=== PATIENT | female | born 1980 | race Caucasian/White ===

== ENCOUNTER 2019-12-31 10:00 | Outpatient (RCR) | payer OTHER, SELFPAY | END 2020-01-23 10:28 | disposition home or self-care (01) | LOC: PT.CARL 10:00 | PROVIDERS: Visit Provider Orthopaedic Surgery | DX: M17.12 Unilateral primary osteoarthritis, left knee (principal) | CPT/HCPCS: 97014; 97110; 97163; G0283 ==

== ENCOUNTER 2021-05-23 05:43 | Emergency (ER) | payer OTHER, SELFPAY ==
[2021-05-23 05:44] VITALS: BP 170/104; PULSE 95; RESP 18; TEMP 36.8; O2SAT 99; BMI 38.7
--- NOTE | 2021-05-23 05:56 | CT_ITS ---
PROCEDURE INFORMATION: Exam: CT Abdomen And Pelvis Without Contrast Exam date and time: 05/23/2021 5:56 AM Age: 40 years old Clinical indication: Abdominal pain; Prior surgery; Patient HX: Left flank pain x 3 hours TECHNIQUE: Imaging protocol: Computed tomography of the abdomen and pelvis without contrast. Radiation optimization: All CT scans at this facility use at least one of these dose optimization techniques: automated exposure control; mA and/or kV adjustment per patient size (includes targeted exams where dose is matched to clinical indication); or iterative reconstruction. [facility] w con 03/04/2019 2:31 AM FINDINGS: Liver: Normal. No mass. Gallbladder and bile ducts: Normal. No calcified stones. No ductal dilation. Pancreas: Normal. No ductal dilation. Spleen: Normal. No splenomegaly. Adrenal glands: Normal. No mass. Kidneys and ureters: No hydronephrosis, hydroureter, nephrolithiasis, or urolithiasis is present. Stomach and bowel: Unremarkable. No obstruction. No mucosal thickening. Appendix: No evidence of appendicitis. Intraperitoneal space: Unremarkable. No free air. No significant fluid collection. Vasculature: Unremarkable. No abdominal aortic aneurysm. Lymph nodes: Unremarkable. No enlarged lymph nodes. Urinary bladder: Unremarkable as visualized. Reproductive: The patient is status post hysterectomy. Bones/joints: Unremarkable. No acute fracture. Soft tissues: Unremarkable. IMPRESSION: No acute process to explain the patient's left
[2021-05-23 06:09] LABS: Microscopic, Urine URINE MICROSCOPIC (MICROSCOPIC)
[2021-05-23 06:16] LABS: Appearance,Urine SL CLOUDY (Clear); Bilirubin,Urine Negative (Negative); Blood, Urine 3+ (Negative); Color,Urine YELLOW (Yellow); Glucose,Urine (UA) Negative (Negative); Ketones,Urine Negative (Negative); Leukocyte Esterase,Urine Negative (Negative); Nitrate,Urine Negative (Negative); PH,Urine 5.5 (5.0-8.5); Protein,Urine 1+ (Negative); Specific Gravity, Urine >= 1.030 (1.005-1.030); Urobilinogen,Urine 0.2 EU/dl (0.2)
[2021-05-23 06:18] LABS: Basophils # 0.1 K/mm3 (0-0.2); Basophils % 1.2 % (0.1-2.0); Eosinophils # 0.4 K/mm3 (0.0-0.4); Eosinophils % 4.3 % (0.1-12.0); Hematocrit 44.1 % (37.0-47.0); Hemoglobin 15.5 g/dL (12.2-16.2); Lymphocytes # 2.7 K/mm3 (0.7-4.5); Mean Corpuscular Hemoglobin 31.7 pg (27.0-31.2); Mean Corpuscular Volume 90.6 fl (81-99); Mean Platelet Volume 8.3 fl (7.4-10.4); Monocytes # 0.5 K/mm3 (0.1-1.0); Monocytes % 5.4 % (1.7-9.3); Neutrophils # 5.3 K/mm3 (1.8-7.8); Neutrophils % 59.1 % (37.0-80.0); Platelet Count 276 K/mm3 (142-424); Red Blood Count 4.87 M/mm3 (4.20-5.40); Red Cell Distribution Width 14.2 % (11.5-17.5)
[2021-05-23 06:27] LABS: Alanine Aminotransferase 29 U/L (12-78); Albumin Level 4.5 g/dl (3.5-5.0); Albumin/Globulin Ratio 1.3 (1.1-1.8); Alkaline Phosphatase 109 U/L (38-126); Anion Gap 13.9 mEq/L (5-15); Aspartate Amino Transferase 31 U/L (14-36); Bilirubin,Total 1.3 mg/dl (0.2-1.3); Blood Urea Nitrogen 14 mg/dl (7-17); Calcium 9.1 mg/dl (8.4-10.2); Carbon Dioxide 23 mmol/L (22.0-30.0); Chloride 105 mmol/L (98-107); Creatinine Clearance Estimated 162 mL/min (50-200); Estimated Glomerular Filt Rate 80 ml/min (>60); GFR (African American) 97 ML/MIN (>60); Globulin 3.4 g/dL (1.3-3.2); Glucose 164 mg/dl (74-100); Potassium 3.9 mmoL/L (3.5-5.1); Sodium 138 mmol/L (136-145); Total Protein,Serum 7.9 g/dl (6.3-8.2)
[2021-05-23 06:28] LABS: HCG Qualitative, Serum Negative (Negative)
[2021-05-23 06:31] LABS: WBC,Urine Occasional #/hpf (0-3)
[2021-05-23 06:32] LABS: Bacteria,Urine Trace /lpf; Squamous Epithelial Cell,Urine Occasional #/hpf (0-5)
--- NOTE | 2021-05-23 06:57 | HMH.EDGENADL ---
ED Disposition Clinical Impression: UTI (urinary tract infection) Qualifiers: Urinary tract infection type: acute cystitis Hematuria presence: with hematuria Qualified Code(s): N30.01 - Acute cystitis with hematuria Disposition: Home, Self-Care Condition on Discharge: Good Instructions: DI for Acute Abdominal Pain Additional Instructions: Take cefdinir as prescribed. A prescription for this was sent to [facility] in [place]. Take Zofran as needed for nausea and vomiting. Take Tylenol and ibuprofen at home for pain. Follow-up with your primary care doctor on Tuesday. Return to the emergency department for any new or worsening symptoms. Prescriptions: Cefdinir [Omnicef 300mg Capsule] 300 mg PO BID #20 cap Transmission Status: Pending to [id number] Ondansetron [Zofran 4mg ODT] 4 mg PO TIDP PRN 3 Days #12 tab PRN Reason: Nausea And Vomiting Transmission Status: Pending to [id number] Referrals: Laila Zeng [Primary Care Provider] - - Critical Care Critical Care Time: No Attestation: On 05/23/21, the high probability of a clinically significant, sudden or life threatening deterioration of the following system(s) required my full and direct attention, intervention and personal management. The time I documented below is in addition to time spent performing reported procedures but includes the following listed in this critical care notation. Medical Decision Making - Patrice Inquiry Pt receiving controlled substance: No Vital Signs: 05/23/21 05:44 Temperature 98.2 F Temperature Source Oral Pulse Rate [Right] 95 H Respiratory Rate 18 Blood Pressure [Right Arm] 170/104 H Blood Pressure Mean [Right Arm] 126 02 Sat by Pulse Oximetry 99 - Lab Data Lab Results 05/23/21 05:46: Urine Color Yellow, Urine Appearance Sl cloudy, Urine pH 5.5, Ur Specific [place] >= 1.030, Urine Protein 1+, Urine Glucose (UA) Negative, Urine Ketones Negative, Urine Blood 3+, Urine Nitrate Negative, Urine Bilirubin Negative, Urine Urobilinogen 0.2, Ur Leukocyte Esterase Negative, Urine RBC 10-20, Urine WBC Occasional, Ur Squamous Epith Cells Occasional, Urine Bacteria Trace 05/23/21 06:05: WBC 9.0, RBC 4.87, Hgb 15.5, Hct 44.1, MCV 90.6, MCH 31.7 H, MCHC 35.0, RDW 14.2, Plt Count 276, MPV 8.3, Neut % (Auto) 59.1, Lymph % (Auto) 30.0, Long % (Auto) 5.4, Eos % (Auto) 4.3, Baso % (Auto) 1.2, Neut # (Auto) 5.3, Lymph # (Auto) 2.7, Long # (Auto) 0.5, Eos # (Auto) 0.4, Baso # (Auto) 0.1 05/23/21 06:05: Sodium 138, Potassium 3.9, Chloride 105, Carbon Dioxide 23, Anion Gap 13.9, BUN 14, Creatinine 0.80, Estimated Creat Clear 162, Estimated GFR 80, Est GFR ( Amer) 97, Glucose 164 H, Calcium 9.1, Total Bilirubin 1.3, AST 31, ALT 29, Alkaline Phosphatase 109, Total Protein 7.9, Albumin 4.5, Globulin 3.4 H, Albumin/Globulin Ratio 1.3 05/23/21 06:05: Serum HCG, Qual Negative Result diagrams: 05/23/21 06:05 05/23/21 06:05 Orders (Tests/Meds): ED MEDICATIONS Generic Name Dose Route Start Last Admin Trade Name Freq PRN Reason Stop Dose Admin Lactated Ringer's 1,000 mls @ 999 mls/hr 05/23/21 06:15 05/23/21 06:12 Lactated Ringer's 1000 Ml Bag IV 05/23/21 07:15 999 mls/hr .[id number] JERMAINE Administration Discontinued Medications Generic Name Dose Route Start Last Admin Trade Name Freq PRN Reason Stop Dose Admin Ketorolac Tromethamine 30 mg 05/23/21 05:59 05/23/21 06:13 Ketorolac 30mg/Ml Vial IV 05/23/21 06:00 30 mg ONCE ONE Administration Ondansetron HCl 4 mg 05/23/21 05:56 05/23/21 06:13 Ondansetron 4mg Odt SL 05/23/21 05:57 Not Given ONCE ONE Ondansetron HCl 4 mg 05/23/21 06:13 05/23/21 06:13 Ondansetron 4mg/2ml Vial IV 05/23/21 06:14 4 mg ONCE ONE Administration Medical Decision Narrative: The patient is a 40-year-old female who presents to the emergency department with left flank pain radiating to the left groin associated with vomiting since 4 AM. Differenti
[2021-05-23 08:20] VITALS: BP 147/90; PULSE 88; RESP 16; TEMP 36.6; O2SAT 98
== END 2021-05-23 08:22 | disposition home or self-care (01) ==
PROVIDERS: Emergency Provider Emergency Medicine; PCP Family Medicine
DX: N30.01 Acute cystitis with hematuria (principal); I10 Essential (primary) hypertension
CPT/HCPCS: 74176; 80053; 81001; 84703; 85025; 96365; 96375; 99283; J2405

== ENCOUNTER → 2021-07-31 16:39 | Outpatient (CLI) | payer OTHER, SELFPAY ==
--- NOTE | 2021-07-31 16:40 | MM_ITS ---
PROCEDURE: MM DIG SCREENING MAMM BI W/CAD Digital Breast Tomosynthesis Included CLINICAL INDICATION: SCREENING There is a history of breast cancer in the patient's maternal grandmother and maternal aunt. COMPARISON: [facility] BC SCREENING MAMMOGRAM DIGITAL from 08/05/2009 MG BC SCREENING MAMMOGRAM DIGITAL from 08/05/2009 TECHNIQUE: Standard CC and MLO images and 3D Tomosynthesis was obtained. R2 CAD reviewed. FINDINGS: The breasts are composed primarily of with there is a tiny benign-appearing nodular density inner quadrant right breast. There is no suspicious lesion in either breast and no suspicious microcalcifications IMPRESSION: Fatty type breast parenchyma with no suspicious lesions seen BI-RAD Category: 1 Negative FOLLOW-UP: 1YR 1 Year Follow-up (A letter has been sent to the patient regarding results of the study.) Dictated by: Dr. Andres Padilla MD 08/28/2021 07:54 Dr. Andres Padilla MD in [place] 08/28/2021 07:54
== END ==
PROVIDERS: PCP Family Medicine; Visit Provider Family Medicine
DX: Z12.31 Encounter for screening mammogram for malignant neoplasm of breast (principal); Z80.3 Family history of malignant neoplasm of breast
CPT/HCPCS: 77063; 77067

== ENCOUNTER → 2021-08-21 14:34 | Outpatient (CLI) | payer OTHER, SELFPAY | PROVIDERS: PCP Family Medicine; Visit Provider Nurse Practitioner Family | DX: G47.9 Sleep disorder, unspecified (principal); R06.83 Snoring; G43.109 Migraine with aura, not intractable, without status migrainosus; I10 Essential (primary) hypertension; Z68.39 Body mass index [BMI] 39.0-39.9, adult; H53.139 Sudden visual loss, unspecified eye | CPT/HCPCS: G0399 ==

== ENCOUNTER → 2021-08-22 09:13 | Outpatient (CLI) | payer OTHER, SELFPAY ==
--- NOTE | 2021-08-22 09:13 | MR_ITS ---
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 Contrast material: ISOVUE; Contrast volume: 22 ml; Contrast route: IV; COMPARISON: No relevant prior studies available. FINDINGS: Brain: No acute infarct identified on the diffusion-weighted imaging. No evidence of brain parenchymal edema or intracranial mass effect. No significant white matter disease. No enhancing intracranial pathology. Cerebral ventricles: Normal. No ventriculomegaly. Bones/joints: Unremarkable. Paranasal sinuses: Moderate frontal and ethmoid sinus mucosal thickening. Retention cysts or polyps in the left maxillary and right sphenoid sinuses. Mastoid air cells: Normal as visualized. No mastoid effusion. Orbital cavity: Unremarkable. Soft tissues: Unremarkable. IMPRESSION: Unremarkable MRI brain without and with contrast.
--- NOTE | 2021-08-22 09:13 | MR_ITS ---
PROCEDURE INFORMATION: Exam: MRA Head Without Contrast; Arteriography Exam date and time: 08/22/2021 9:13 AM Age: 40 years old Clinical indication: Pain; Headache; Additional info: Sudden loss of vision, transient TECHNIQUE: Imaging protocol: Magnetic resonance angiography head without contrast. Exam focused on the arteries. COMPARISON: No relevant prior studies available. FINDINGS: ANTERIOR CIRCULATION: Right internal carotid artery: 2 mm saccular aneurysm arising from the inferior surface of the right supraclinoid ICA. Right ICA is patent without stenosis. Right middle cerebral artery: No occlusion or significant stenosis. No aneurysm. Right anterior cerebral artery: No occlusion or significant stenosis. No aneurysm. Left internal carotid artery: Intracranial segment is patent with no significant stenosis. No aneurysm. Left middle cerebral artery: No occlusion or significant stenosis. No aneurysm. Left anterior cerebral artery: No occlusion or significant stenosis. No aneurysm. POSTERIOR CIRCULATION: Right vertebral artery: No occlusion or significant stenosis. No aneurysm. Left vertebral artery: No occlusion or significant stenosis. No aneurysm. Basilar artery: No occlusion or significant stenosis. No aneurysm. Right posterior cerebral artery: No occlusion or significant stenosis. No aneurysm. Left posterior cerebral artery: No occlusion or significant stenosis. No aneurysm. IMPRESSION: 1. 2 mm right supraclinoid ICA aneurysm. 2. No significant stenosis or large vessel occlusion.
== END ==
PROVIDERS: PCP Family Medicine; Visit Provider Nurse Practitioner Family
DX: G43.109 Migraine with aura, not intractable, without status migrainosus (principal); H53.139 Sudden visual loss, unspecified eye; I10 Essential (primary) hypertension
CPT/HCPCS: 70544; 70553; A9576

== ENCOUNTER 2021-11-14 10:35 | Emergency (ER) | payer OTHER, SELFPAY ==
--- NOTE | 2021-11-14 10:54 | CT_ITS ---
PROCEDURE INFORMATION: Exam: CT Abdomen And Pelvis Without Contrast Exam date and time: 11/14/2021 10:54 AM Age: 41 years old Clinical indication: Abdominal pain; Flank; Right; Additional info: Kidney stone. . RT side kidney pain. . . HX of kidney stones TECHNIQUE: Imaging protocol: Computed tomography of the abdomen and pelvis without contrast. Radiation optimization: All CT scans at this facility use at least one of these dose optimization techniques: automated exposure control; mA and/or kV adjustment per patient size (includes targeted exams where dose is matched to clinical indication); or iterative reconstruction. COMPARISON: CT ABDOMEN PELVIS WO CON 05/23/2021 6:37 AM FINDINGS: Liver: Hepatic steatosis. Gallbladder and bile ducts: Normal. No calcified stones. No ductal dilation. Pancreas: Normal. No ductal dilation. Spleen: Normal. No splenomegaly. Adrenal glands: Normal. No mass. Kidneys and ureters: Mild right hydroureteronephrosis. No obstructing stone is seen. There is some stranding about the right renal pelvis. Stomach and bowel: Colonic diverticulosis without evidence of diverticulitis. No bowel obstruction. Appendix: No evidence of appendicitis. Intraperitoneal space: Unremarkable. No free air. No significant fluid collection. Vasculature: Unremarkable. No abdominal aortic aneurysm. Lymph nodes: Unremarkable. No enlarged lymph nodes. Urinary bladder: Unremarkable as visualized. Reproductive: Hysterectomy. Bones/joints: Unremarkable. No acute fracture. Soft tissues: Unremarkable. IMPRESSION: Mild right hydroureteronephrosis. No obstructing stone is seen. Findings may reflect a recently passed stone.
[2021-11-14 11:03] LABS: Microscopic, Urine URINE MICROSCOPIC (MICROSCOPIC)
[2021-11-14 11:06] VITALS: BP 125/74; PULSE 78; RESP 22; TEMP 37.1; O2SAT 98; BMI 30.9
[2021-11-14 11:06] LABS: Appearance,Urine CLEAR (Clear); Blood, Urine 3+ (Negative); Color,Urine YELLOW (Yellow); Glucose,Urine (UA) Negative (Negative); Ketones,Urine Negative (Negative); Leukocyte Esterase,Urine Negative (Negative); Nitrate,Urine Negative (Negative); Protein,Urine TRACE (Negative); Urobilinogen,Urine 0.2 EU/dl (0.2)
[2021-11-14 11:08] LABS: Basophils # 0.2 K/mm3 (0-0.2); Basophils % 1.7 % (0.1-2.0); Eosinophils # 0.2 K/mm3 (0.0-0.4); Eosinophils % 2.4 % (0.1-12.0); Hematocrit 47.4 % (37.0-47.0); Hemoglobin 15.7 g/dL (12.2-16.2); Lymphocytes # 2.9 K/mm3 (0.7-4.5); Lymphocytes % 27.9 % (10-50); Mean Corpuscular HGB Conc 33.2 g/dL (31.8-35.4); Mean Corpuscular Hemoglobin 31.8 pg (27.0-31.2); Mean Corpuscular Volume 95.9 fl (81-99); Mean Platelet Volume 8.5 fl (7.4-10.4); Monocytes # 0.4 K/mm3 (0.1-1.0); Monocytes % 4.2 % (1.7-9.3); Neutrophils # 6.5 K/mm3 (1.8-7.8); Neutrophils % 63.9 % (37.0-80.0); Platelet Count 325 K/mm3 (142-424); Red Blood Count 4.95 M/mm3 (4.20-5.40); Red Cell Distribution Width 13.9 % (11.5-17.5); White Blood Count 10.2 K/mm3 (4.8-10.8)
[2021-11-14 11:23] LABS: Alanine Aminotransferase 33 U/L (12-78); Albumin Level 4.5 g/dl (3.5-5.0); Albumin/Globulin Ratio 1.3 (1.1-1.8); Alkaline Phosphatase 108 U/L (38-126); Anion Gap 13.1 mEq/L (5-15); Aspartate Amino Transferase 34 U/L (14-36); Bilirubin,Total 1.2 mg/dl (0.2-1.3); Blood Urea Nitrogen 12 mg/dl (7-17); Calcium 9.7 mg/dl (8.4-10.2); Carbon Dioxide 26 mmol/L (22.0-30.0); Chloride 106 mmol/L (98-107); Creatinine Clearance Estimated 96 mL/min (50-200); Estimated Glomerular Filt Rate 61 ml/min (>60); GFR (African American) 74 ML/MIN (>60); Globulin 3.5 g/dL (1.3-3.2); Glucose 180 mg/dl (74-100); Potassium 4.1 mmoL/L (3.5-5.1); Sodium 141 mmol/L (136-145)
[2021-11-14 11:24] LABS: Bilirubin,Urine 1+ (Negative)
[2021-11-14 11:41] LABS: RBC,Urine 50-100 #/hpf (0-3); Squamous Epithelial Cell,Urine Occasional #/hpf (0-5); WBC,Urine Occasional #/hpf (0-3)
--- NOTE | 2021-11-14 12:00 | PC.NURSE ---
pt resting states some improvement with pain and nausea.
--- NOTE | 2021-11-14 13:02 | HMH.EDGENADL ---
ED Disposition Clinical Impression: Renal calculus or stone Disposition: Home, Self-Care Condition on Discharge: Good Instructions: Kidney Stones -- Adult, DI for Acute Pain -- Adult Referrals: Laila Zeng [Primary Care Provider] - - Critical Care Critical Care Time: No Attestation: On 11/14/21, the high probability of a clinically significant, sudden or life threatening deterioration of the following system(s) required my full and direct attention, intervention and personal management. The time I documented below is in addition to time spent performing reported procedures but includes the following listed in this critical care notation. Medical Decision Making - Medical Records Medical records reviewed: Yes: I reviewed the patient's medical records. - Patrice Inquiry Pt receiving controlled substance: Yes Patrice was queried for this patient: No Risks and benefits of using a controlled substance: were discussed with pt by me Vital Signs: 11/14/21 11:06 11/14/21 14:49 Temperature 98.8 F 98 F Temperature Source Oral Oral Pulse Rate 74 Pulse Rate [Radial] 78 Respiratory Rate 22 18 Blood Pressure 143/68 H Blood Pressure [Right Radial Artery] 125/74 Blood Pressure Mean [Right Radial Artery] 91 Blood Pressure Position [Right Radial Artery] Sitting 02 Sat by Pulse Oximetry 98 Oxygen Delivery Method Room Air Room Air - Lab Data Lab results reviewed: Yes: I reviewed the patient's lab results. Lab Results 11/14/21 10:54: Urine Color Yellow, Urine Appearance Clear, Urine pH 7.0, Ur Specific [place] 1.020, Urine Protein Trace, Urine Glucose (UA) Negative, Urine Ketones Negative, Urine Blood 3+, Urine Nitrate Negative, Urine Bilirubin 1+ A, Urine Urobilinogen 0.2, Ur Leukocyte Esterase Negative, Urine RBC 50-100, Urine WBC Occasional, Ur Squamous Epith Cells Occasional 11/14/21 10:54: WBC 10.2, RBC 4.95, Hgb 15.7, Hct 47.4 H, MCV 95.9, MCH 31.8 H, MCHC 33.2, RDW 13.9, Plt Count 325, MPV 8.5, Neut % (Auto) 63.9, Lymph % (Auto) 27.9, [place] % (Auto) 4.2, Eos % (Auto) 2.4, Baso % (Auto) 1.7, Neut # (Auto) 6.5, Lymph # (Auto) 2.9, [place] # (Auto) 0.4, Eos # (Auto) 0.2, Baso # (Auto) 0.2 11/14/21 10:54: Sodium 141, Potassium 4.1, Chloride 106, Carbon Dioxide 26, Anion Gap 13.1, BUN 12, Creatinine 1.00, Estimated Creat Clear 96, Estimated GFR 61, Est GFR ( Amer) 74, Glucose 180 H, Calcium 9.7, Total Bilirubin 1.2, AST 34, ALT 33, Alkaline Phosphatase 108, Total Protein 8.0, Albumin 4.5, Globulin 3.5 H, Albumin/Globulin Ratio 1.3 Result diagrams: 11/14/21 10:54 11/14/21 10:54 Orders (Tests/Meds): ED MEDICATIONS Discontinued Medications Generic Name Dose Route Start Last Admin Trade Name Juvenalq PRN Reason Stop Dose Admin Morphine Sulfate 4 mg 11/14/21 10:54 11/14/21 11:30 Morphine 4mg/Ml Syringe IV 11/14/21 10:55 4 mg ONCE ONE Administration Ondansetron HCl 4 mg 11/14/21 10:54 11/14/21 11:30 Ondansetron 4mg/2ml Vial IV 11/14/21 10:55 4 mg ONCE ONE Administration ORDERS Category Date Time Status Urine Culture Stat Micro 11/14/21 10:53 Received Medical Decision Narrative: Patient is a 41-year-old female past medical history of kidney stones presenting to the ED with right flank pain. Patient is awake, alert, in moderate distress due to pain. She is medically stable, afebrile. Physical exam is remarkable for right lower quadrant pain, right flank pain. Right CVA tenderness. Differential includes but not limited to nephrolithiasis, hydronephrosis, infected stone,-itis, pyelonephritis, renal abscess. Given this a CBC, CMP, UA, urine cultures, CT abdomen pelvis without contrast is performed. Lab work is unremarkable, UA shows red blood cells but no bacteria, no leukocyte esterase or nitrates. CT abdomen pelvis remarkable for a passed stone with residual hydronephrosis noted. This point patient is stable for discharge. Patient is given strict return precautions and fol
[2021-11-14 14:49] VITALS: BP 143/68; PULSE 74; RESP 18; TEMP 36.6; O2SAT 98
== END 2021-11-14 14:51 | disposition home or self-care (01) ==
LOC: UTC 10:45 → ER 10:46
PROVIDERS: Emergency Provider Emergency Medicine; PCP Family Medicine
DX: N20.0 Calculus of kidney (principal); I10 Essential (primary) hypertension; J45.909 Unspecified asthma, uncomplicated
CPT/HCPCS: 74176; 80053; 81001; 85025; 87086; 96365; 96375; 96376; 99282; J2405

== ENCOUNTER 2023-12-30 14:18 | Outpatient (CLI) | payer BC, SELFPAY ==
--- NOTE | 2023-12-30 14:21 | MM_ITS ---
PROCEDURE INFORMATION: Exam: MG Bilateral Screening 3D Mammography Exam date and time: 12/30/2023 2:10 PM Age: 43 years old Clinical indication: Screening mammogram TECHNIQUE: Imaging protocol: Bilateral Screening tomosynthesis and 2D mammography including computer-aided detection (CAD) when performed. COMPARISON: 1. MG MM DIG SCREENING MAMM BI W/CAD 07/31/2021 4:36 PM 2. MG BC SCREENING MAMMOGRAM DIGITAL 08/05/2009 8:39 AM 3. MR BREAST WW/O CON ARVIN 08/12/2009 10:35 AM FINDINGS: MAMMOGRAPHY: Breast composition: The breasts are almost entirely fatty. Mass: None. Architectural distortion: No new or suspicious architectural distortion. Calcifications: No new or suspicious calcifications are present Asymmetric density: No new or suspicious asymmetric density is present Skin thickening: None. Axillary adenopathy: None. IMPRESSION: No mammographic evidence of malignancy. Recommend annual screening mammography unless otherwise clinically indicated. ASSESSMENT: BI-RADS category 1: Negative.
== END 2023-12-30 23:59 ==
LOC: RAD 14:18
PROVIDERS: PCP Family Medicine; Visit Provider Family Medicine
DX: Z12.31 Encounter for screening mammogram for malignant neoplasm of breast (principal)
CPT/HCPCS: 77063; 77067

== ENCOUNTER 2025-03-26 07:32 | Emergency (ER) | payer BC, SELFPAY ==
[2025-03-26] VITALS (9 sets, daily range): BP systolic 146–174; BP diastolic 95–110; PULSE 62–94; RESP 15–18; TEMP 36.7–36.8; O2SAT 95–99; BMI 41.1
--- OUTSIDE RECORDS SUMMARY | 2025-03-26 07:38 | XMS_ITS | Clinical Summary ---
Author Organization [facility] Address [address] [place] [address] Care Team Providers Care Insurance Adviser Name Role Phone Laila Zeng MD Primary Care Provider Allergies Active Allergy Reactions Criticality Noted Date Comments Aspirin Anaphylaxis,Hives,Un known - Patient states they do not know rxn details High 08/02/1983 Propranolol Swelling High 09/14/2021 Medications albuterol 108 (90 Base) MCG/ACT inhaler Inhale 2 puffs every 4 (four) hours if needed. Active lisinopril 40 MG tablet Active Immunizations Immunization Administration Dates Next Due AstraZeneca SARS-CoV-2 Vaccination 01/22/2021 Hep B, Adolescent/High Risk 08/05/1997 Influenza, injectable, quadrivalent 07/13/2019 Influenza, recombinant, quad rivalent, injectable, preservative free 08/10/2022,07/24/2021 PPD Skin Test (TB Skin Test) 05/21/2015 Pneumococcal Polysaccharide PPV23 12/23/2023 TD (adult), 2 Lf tetanus tox oid, preservative free, adsorbed 08/05/1997 Tdap 04/06/2019 Family History Medical History Relation Name Comments Diabetes Cousin Diabetes Father Miko Porter Hypertension Father Miko Porter Cardiac disorder Maternal Grandfather Carla Macey Diabetes Maternal Grandfather Carla Choudhury Skin cancer Maternal Grandfather Carla Choudhury FH: ski n cancer Breast cancer Maternal Grandmother Erin Hugoer FH: br east cancer Cancer Maternal Grandmother Erin Macey Diabetes Maternal Grandmother Erin Macey Hypertension Maternal Grandmother Erin Macey Cardiac disorder Maternal Great-Grandmother Cancer Mother Shirlene Porter Hypertension Mother Shirlene Porter Cancer Mother's Sister Sandra Choudhury Accident Cardiac disorder Other 1 Diabetes Other 2 Diabetes Other 3 Hypertension Other 4 Breast cancer Other 5 FH: breast can cer Leukemia Other 6 FH: leukemia Ovarian cancer Other 7 FH: ovarian c ancer Diabetes Paternal Grandfather Gaston Porter Hypertension Paternal Grandfather Gaston Porter Cardiac disorder Paternal Grandmother Hilda Porter Diabetes Paternal Grandmother Hilda Porter Hypertension Paternal Grandmother Hilda Porter Relation Name Status Comments Cousin Father Miko Porter Maternal Grandfather Carla Hugoer Maternal Grandmother Erin Macey Maternal Great-Grandmother Mother Shirlene Porter Mother's Sister Sandra Choudhury Accident Other 1 Other 2 Other 3 Other 4 Other 5 Other 6 Other 7 Paternal Grandfather Gaston Porter Paternal Grandmother Hilda Porter Social History Tobacco Use Types Packs/Day Years Used Date Smoking Tobacco: Former Cigarettes Q uit: 10/17/1999 Smokeless Tobacco: Never Tobacco Cessation:Counseling Given: Not Answered Alcohol Use Standard Drinks/Week Comments Defer 0 (1 standard drink = 0.6 oz pur e alcohol) PHQ-2 Answer Date Recorded Patient Health Questionnaire-2 Score 0 10/09/2024 PHQ-9 Answer Date Recorded Patient Health Questionnaire-9 Score 0 10/09/2024 Comments Unknown Sex and Gender Information Value Date Recorded Sex Assigned at Female 10/02/2024 11:21 PM EST Legal Sex Female 8:18 PM EDT Gender Identity Female 10/02/2024 11:21 PM EST Sexual Orientation Straight 10/02/2024 11 :21 PM EST Last Filed Vital Signs Vital Sign Reading Time Taken Comments Blood Pressure 125/85 10/09/2024 8:55 AM EST Pulse 83 10/09/2024 8:55 AM EST Temperature 36.8 C (98.3 F) 10/09/2024 8:55 AM EST Respiratory Rate 16 10/09/2024 8:55 AM EST Oxygen Saturation 96% 10/09/2024 8:55 AM EST Inhaled Oxygen Concentration - - Weight 116 kg (255 lb 11.7 oz) 10/09/2024 8:55 A M EST Height 165.1 cm (5' 5 ) 10/09/2024 8:55 AM EST Body Mass Index 42.56 10/09/2024 8:55 AM EST Plan of Treatment Upcoming Encounters Date Type Department Care Team (Late st Contact Info) Description 04/09/2025 7:20 AM EDT Office Visit [facility] [address] [place] [address] Jessica Davalos M, SLITTER OPERATOR [address] [place] [address] Health Maintenance Due Date Last Done Comments [facility]-HIV Screening 1981 [facility]-Hepatitis C Screening 1981 [facility]-Infant/Child/Adol SDOH Screenings 1981 [facility]-Varicella Vaccines (1 of 2 - 13+ 2-dose series) 1994 HPV Vaccines (1 - 3-dose series) 1996 [facility]-Hepatitis B Vaccines (2 of 3 - 3-dose series) 09/02/1997 08/05/1997 [facility]- SDOH Screenings 1999 [facility]-Adult SDOH Screenings 1999 [facility]-Pap Smear 2002 [facility]-Cervical Cancer Screening 2011 [facility]-HPV/Cotest 2011 [facility]-CCDCA-74 Vaccine ( - 2023- season) 2024 01/18/2022, 01/22/2021 [facility]-Influenza Vaccine ([place]as[place] n Ended) 2025 08/10/2022, 07/24/2021, 07/13/2019 [facility]-Depression Screening 10/09/2025 024, 10/09/2024 [facility]-DTaP,Tdap,and Td Vaccine s (3 - Td or Tdap) 04/06/2029 04/06/2019, 08/05/1997 [facility]-Zoster Vaccines (1 of 2) 2031 [facility]-Pneumococcal Vaccine: Pediatrics (0 to 5 Years) and At-Risk Patients (6 to 49 Years) Aged Out 12/23/2023 No longer eligible b ased on patient's age to complete this topic [facility]-Obesity Intervention Completed 10/09/2024 [facility]-HIB Vaccines Aged Out No longer e ligible based on patient's age to complete this topic [facility]-Hepatitis A Vaccines Aged Out No longer eligible based on patient's age to complete this topic [facility]-IPV Vaccines Aged Out No longer e ligible based on patient's age to complete this topic [facility]-Rotavirus Vaccines Aged Out No lo nger eligible based on patient's age to complete this topic Insurance ANTHEM Care Teams Insurance Adviser Relationship Specialty Start Date End Date Laila Zeng MD [address] [place] [id number] [address] [place] [address] PCP - General 10/09/24
--- OUTSIDE RECORDS SUMMARY | 2025-03-26 07:38 | XMS_ITS | Data Portability ---
Author Organization [facility] telehealth Address [address] [place] [address] Assessment Encounter Date Assessment Date Assessment LastModified by Organization Details LastModified Time 09/14/2022 09/14/2022 41yo F presents for bladder prolapse evaluation. Pt reports feeling a bulge. Floaters noted in the bladder on ULS. Pt has history of kidney stones. Bladder funneling and lateral cystocele noted. Spec exam reveals vaginal discharge, culture collected. 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 Posterior vaginal wall is well suspended, vaginal wall is not prolapsing. Anterior vaginal wall prolapse noted when standing. Discussed surgery process and recovery with pt. Pt would like to have bloodwork done at her PCP. Pt will send records. Discussed DHEA vaginal suppositories. Called in to [facility]. Started pt on Metformin. Surgery scheduled today. [email or web address] Not available 09/14/2022 15:59:48 12/27/2022 12/27/2022 42 y/o F here today for post op visit. WNWD female in NAD. Pt is doing well since surgery. Pt had a RA Laparoscopy, PVDR, Urethral Suspension with use of chickaloon tissue patch and stravix with Dr. Wiley. Has had no bleeding. Pain was tolerable with OTC medications after using pain medication prescribed and she is no longer in pain. Pt appears well on physical examination. Incisions are well healed. No erythema, drainage or separation noted. Speculum examination reveals surgery is holding up well. RTC for WWE or PRN. Pleasant mood. [email or web address] Not available 12/27/2022 10:54:29 Plan of Treatment Reminders Order Date Submit Date Provider Last Modified By Organization Details Last Modified Time Details Appointments None recorded. Lab None recorded. Referral None recorded. Procedures None recorded. Surgeries None recorded. Imaging None recorded. Medication Orders metformin ER 500 mg 24 hr tablet,ext ended release (gastric retention) 2021 022 [facility], [address] [place], [address], 15:52:36 Patient TargetsNo targets recorded. Patient Instructions Encounter Date Encounter Id Patient Instructions Last Modified By Organization Details Last Modified Time 09/14/2022 [id number] Surgery indicated: Laparascopic robotically assisted paravaginal defect repair, urethral suspension with use of chickaloon tissue patch and stravix Diagnosis: Lateral cystocele, anterior vaginal wall prolapse, pelvic organ prolapse stage-3, urethral hypermobility, stress urinary incontinence [email or web address] Not available 09/14/2022 15:59:15 Reason for Referral None Reported. Results Created Date Observation Date Name Description Value Unit Range Abnormal Flag Note LastModifiedBy Organization Detail LastModifiedTime 09/14/20 22 09/14/2022 ZPDF REPOR T abnormal status abnormal Not Available [facility] [address], [place], [address], 09/15/2022 20:57:45 09/14/20 22 09/14/2022 ZPDF REPOR T abnormal status abnormal Not Available [facility] [address], [place], [address], 09/15/2022 22:04:34 09/14/20 22 09/14/2022 GRAM POSIT IRINEO BACTE RIAL UTI PANEL abnormal status abnormal Not Available [facility] [address], [place], [address], 09/15/2022 22:04:38 09/14/20 22 09/15/2022 GRAM NEGAT IRINEO BACTE RIAL UTI PANEL pseudomonas aeruginosa Not Detect ed not detect ed Not Available [facility] [address], [place], [address], 09/15/2022 22:04:38 09/14/20 22 09/15/2022 GRAM NEGAT IRINEO BACTE RIAL UTI PANEL proteus mirabilis Not Detect ed not detect ed Not Available [facility] [address], [place], [address], 09/15/2022 22:04:38 09/14/20 22 09/15/2022 GRAM NEGAT IRINEO BACTE RIAL UTI PANEL klebsiella pneumoniae Not Detect ed not detect ed Not Available [facility] [address], [place], [address], 09/15/2022 22:04:38 09/14/20 22 09/15/2022 GRAM NEGAT IRINEO BACTE RIAL UTI PANEL klebsiella oxytoca Not Detect ed not detect ed Not Available [facility] [address], [place], [address], 09/15/2022 22:04:38 09/14/20 22 09/15/2022 GRAM NEGAT IRINEO BACTE RIAL UTI PANEL escherichia coli Not Detect ed not detect ed Not Available [facility] [address], [place], [address], 09/15/2022 22:04:38 09/14/20 22 09/15/2022 GRAM NEGAT IRINEO BACTE RIAL UTI PANEL proteus vulgaris Not Detect ed not detect ed Not Available [facility] [address], [place], [address], 09/15/2022 22:04:38 09/14/20 22 09/15/2022 GRAM NEGAT IRINEO BACTE RIAL UTI PANEL acinetobacte r baumannii Not Detect ed not detect ed Not Available [facility] [address], [place], [address], 09/15/2022 22:04:38 09/14/20 22 09/15/2022 GRAM NEGAT IRINEO BACTE RIAL UTI PANEL enterobacter aerogenes Not Detect ed not detect ed Not Available [facility] [address], [place], [address], 09/15/2022 22:04:38 09/14/20 22 09/15/2022 GRAM NEGAT IRINEO BACTE RIAL UTI PANEL citrobacter freundii. Not Detect ed not detect ed Not Available [facility] [address], [place], [address], 09/15/2022 22:04:38 09/14/20 22 09/15/2022 GRAM NEGAT IRINEO BACTE RIAL UTI PANEL providencia stuartii Not Detect ed not detect ed Not Available [facility] [address], [place], [address], 09/15/2022 22:04:38 09/14/20 22 09/15/2022 GRAM NEGAT IRINEO BACTE RIAL UTI PANEL megasphaera 1. Not Detect ed not detect ed Not Available [facility] [address], [place], [address], 09/15/2022 22:04:38 09/14/20 22 09/15/2022 GRAM NEGAT IRINEO BACTE RIAL UTI PANEL morganella morganii Not Detect ed not detect ed Not Available [facility] [address], [place], [address], 09/15/2022 22:04:38 09/14/20 22 09/15/2022 GRAM NEGAT IRINEO BACTE RIAL UTI PANEL ureaplasma urealyticum. Not Detect ed not detect ed Not Available [facility] [address], [place], [address], 09/15/2022 22:04:38 09/14/20 22 09/15/2022 GRAM NEGAT IRINEO BACTE RIAL UTI PANEL ureaplasma parvum. Not Detect ed not detect ed Not Available [facility] [address], [place], [address], 09/15/2022 22:04:38 09/14/20 22 09/15/2022 FUNGA L UTI PANEL edd albicans/gla brata/tropic fady Not Detect ed not detect ed Not Available [facility] [address], [place], [address], 09/15/2022 22:04:38 09/14/20 22 09/15/2022 ANTIB IOTIC RESIS TANCE PANEL aminoglycosi de resistance Not Detect ed not detect ed Not Available [facility] [address], [place], [address], 09/15/2022 22:04:37 09/14/20 22 09/15/2022 ANTIB IOTIC RESIS TANCE PANEL methicillin resistance Detect ed not detect ed abnormal Not Available [facility] [address], [place], [address], 09/15/2022 22:04:37 09/14/20 22 09/15/2022 ANTIB IOTIC RESIS TANCE PANEL carbapenem resistance Not Detect ed not detect ed Not Available [facility] [address], [place], [address], 09/15/2022 22:04:37 09/14/20 22 09/15/2022 ANTIB IOTIC RESIS TANCE PANEL glycopeptide (vancomycin) resistance Not Detect ed not detect ed Not Available [facility] [address], [place], [address], 09/15/2022 22:04:37 09/14/20 22 09/15/2022 ANTIB IOTIC RESIS TANCE PANEL tetracycline resistance Detect ed not detect ed abnormal Not Available [facility] [address], [place], [address], 09/15/2022 22:04:37 09/14/20 22 09/15/2022 ANTIB IOTIC RESIS TANCE PANEL extended spectrum beta-lactama se resistance Not Detect ed not detect ed Not Available [facility] [address], [place], [address], 09/15/2022 22:04:37 09/14/20 22 09/15/2022 ANTIB IOTIC RESIS TANCE PANEL macrolide resistance Not Detect ed not detect ed Not Available [facility] [address], [place], [address], 09/15/2022 22:04:37 09/14/20 22 09/15/2022 ANTIB IOTIC RESIS TANCE PANEL cephalospori n resistance Not Detect ed not detect ed Not Available [facility] [address], [place], [address], 09/15/2022 22:04:37 09/14/20 22 09/15/2022 ANTIB IOTIC RESIS TANCE PANEL quinolone and fluroquinolo ne resistance Not Detect ed not detect ed Not Available [facility] [address], [place], [address], 09/15/2022 22:04:37 09/14/20 22 09/15/2022 ANTIB IOTIC RESIS TANCE PANEL sulfonamide resistance Not Detect ed not detect ed Not Available [facility] [address], [place], [address], 09/15/2022 22:04:37 09/14/20 22 09/15/2022 ANTIB IOTIC RESIS TANCE PANEL trimethoprim resistance Not Detect ed not detect ed Not Available [facility] [address], [place], [address], 09/15/2022 22:04:37 09/14/20 22 09/15/2022 ANTIB IOTIC RESIS TANCE PANEL fosfomycin resistance (fosa) Not Detect ed not detect ed Not Available [facility] [place], [address], 09/15/2022 22:04:37 09/14/20 22 09/15/2022 ANTIB IOTIC RESIS TANCE PANEL fosfomycin resistance (fosa1) Not Detect ed not detect ed Not Available [facility], [place], [address], 09/15/2022 22:04:37 09/14/20 22 09/15/2022 UROGE NITAL MYCOP LASMA & UREAP LASMA PANEL mycoplasma genitalium Not Detect ed not detect ed Not Available [facility] [address], [place], [address], 09/15/2022 20:57:45 09/14/20 22 09/15/2022 UROGE NITAL MYCOP LASMA & UREAP LASMA PANEL mycoplasma hominis. Not Detect ed not detect ed Not Available [facility] [address], [place], [address], 09/15/2022 20:57:45 09/14/20 22 09/15/2022 UROGE NITAL MYCOP LASMA & UREAP LASMA PANEL ureaplasma urealyticum. Not Detect ed not detect ed Not Available [facility] [address], [place], [address], 09/15/2022 20:57:45 09/14/20 22 09/15/2022 UROGE NITAL MYCOP LASMA & UREAP LASMA PANEL ureaplasma parvum. Not Detect ed not detect ed Not Available [facility] [address], [place], [address], 09/15/2022 20:57:45 09/14/20 22 09/15/2022 SHELBI DA VAGIN ITIS (CV) edd vaginitis Negati ve negati ve Not Available [facility] [address], [place], [address], 09/15/2022 20:57:44 09/14/20 22 09/15/2022 SHELBI DA VAGIN ITIS (CV) edd glabrata. Negati ve negati ve This assay uses Holog ic TMA on the panth er syste m for detec tion of C. glabr phil. Not Available [facility] [address], [place], [address], 09/15/2022 20:57:44 09/14/20 22 09/15/2022 SHELBI DA VAGIN ITIS (CV) edd spp Negati ve negati ve This assay uses Holog ic TMA on the panth er syste m and will detec t but not diffe renti ates these speci es: C. albic ans,C . tropi calis , C. parap kailee is and C. dubli irasema is. Not Available [facility] [address], [place], [address], 09/15/2022 20:57:44 09/14/20 22 09/15/2022 BACTE RIAL VAGIN OSIS (BV) bacterial vaginosis. Negati ve negati ve Not Available [facility] [address], [place], [address], 09/15/2022 20:57:44 09/14/20 22 09/15/2022 ANTIB IOTIC RESIS TANCE PANEL aminoglycosi de resistance Not Detect ed not detect ed Not Available [facility] [address], [place], [address], 09/15/2022 20:57:44 09/14/20 22 09/15/2022 ANTIB IOTIC RESIS TANCE PANEL methicillin resistance Not Detect ed not detect ed Not Available [facility] [address], [place], [address], 09/15/2022 20:57:44 09/14/20 22 09/15/2022 ANTIB IOTIC RESIS TANCE PANEL carbapenem resistance Not Detect ed not detect ed Not Available [facility] [address], [place], [address], 09/15/2022 20:57:44 09/14/20 22 09/15/2022 ANTIB IOTIC RESIS TANCE PANEL glycopeptide (vancomycin) resistance Not Detect ed not detect ed Not Available [facility] [address], [place], [address], 09/15/2022 20:57:44 09/14/20 22 09/15/2022 ANTIB IOTIC RESIS TANCE PANEL tetracycline resistance Detect ed not detect ed abnormal Not Available [facility] [address], [place], [address], 09/15/2022 20:57:44 09/14/20 22 09/15/2022 ANTIB IOTIC RESIS TANCE PANEL extended spectrum beta-lactama se resistance Not Detect ed not detect ed Not Available [facility] [address], [place], [address], 09/15/2022 20:57:44 09/14/20 22 09/15/2022 ANTIB IOTIC RESIS TANCE PANEL macrolide resistance Not Detect ed not detect ed Not Available [facility] [address], [place], [address], 09/15/2022 20:57:44 09/14/20 22 09/15/2022 ANTIB IOTIC RESIS TANCE PANEL cephalospori n resistance Not Detect ed not detect ed Not Available [facility] [address], [place], [address], 09/15/2022 20:57:44 09/14/20 22 09/15/2022 ANTIB IOTIC RESIS TANCE PANEL quinolone and fluroquinolo ne resistance Not Detect ed not detect ed Not Available [facility] [address], [place], [address], 09/15/2022 20:57:44 09/14/20 22 09/15/2022 ANTIB IOTIC RESIS TANCE PANEL sulfonamide resistance Not Detect ed not detect ed Not Available [facility] [address], [place], [address], 09/15/2022 20:57:44 09/14/20 22 09/15/2022 ANTIB IOTIC RESIS TANCE PANEL trimethoprim resistance Not Detect ed not detect ed Not Available [facility], [place], [address], 09/15/2022 20:57:44 09/14/20 22 09/15/2022 ANTIB IOTIC RESIS TANCE PANEL fosfomycin resistance (fosa) Not Detect ed not detect ed Not Available [facility] [address], [place], [address], 09/15/2022 20:57:44 09/14/20 22 09/15/2022 ANTIB IOTIC RESIS TANCE PANEL fosfomycin resistance (fosa1) Not Detect ed not detect ed Not Available [facility], [place], [address], 09/15/2022 20:57:44 09/14/20 22 09/15/2022 AEROB IC VAGIN ITIS (AV) PANEL streptococcu s agalactiae Not Detect ed not detect ed Not Available [facility] [address], [place], [address], 09/15/2022 20:57:43 09/14/20 22 09/15/2022 AEROB IC VAGIN ITIS (AV) PANEL staphylococc us aureus Not Detect ed not detect ed Not Available [facility] [address], [place], [address], 09/15/2022 20:57:43 09/14/20 22 09/15/2022 AEROB IC VAGIN ITIS (AV) PANEL escherichia coli Not Detect ed not detect ed Not Available [facility] [address], [place], [address], 09/15/2022 20:57:43 09/14/20 22 09/15/2022 AEROB IC VAGIN ITIS (AV) PANEL enterococcus faecalis Not Detect ed not detect ed Not Available [facility] [address], [place], [address], 09/15/2022 20:57:43 11/12/19 23 11/12/2022 lab* lab Not Available [facility] (Lab) [address], [place], [address], 11/18/2022 16:29:46 Result Notes None recorded. Problems Name Problem SNOMED Code Status Onset Date Resolution Date Notes Provider Name and Address Organization Details Recorded Time Asthma 294024640 Active 022 Norma Wiley MD [address], [place], [address], [facility] 09/14/2022 15:38:48 Problem Notes None recorded. Procedures Surgical History Date Name Laterality Status Provider Name and Address Organization Details Recorded Time 2 Non-OB ULS completed Norma Wiley MD [address], [place], [address], [facility] 09/14/2022 15:45:14 1 Date of Last Mammogram completed [facility] 09/14/2022 13:27:24 7 Date of Last Pap Smear completed [facility] 09/14/2022 13:27:40 Imaging Results None recorded. Procedure Notes None recorded. Medical Equipment None Reported. Allergies Allergen ID Allergen Name Allergen Category Reaction Reaction Severity Criticality Documentation Date Start Date Code Code System Note Provider Name and Address Organization Details Recorded Time 2461 aspirin medicatio n hives Not available Not available 09/14/2022 1191 RxNorm [facility] 2 13:26:00 Medications Name Sig Start Date Stop Date Status Note LastModified by Organization Details LastModified Time metformin ER 500 mg 24 hr tablet,exte nded release (gastric retention) Take 3 tablets every day by oral route with evening meal for 30 days. 022 active Not Available Not Available Not Avai lable Myrbetriq 50 mg tablet,exte nded release Take 1 tablet every day by oral route. active Not Available Not Available No t Available Ubrelvy active Not Available Not Avail able Not Available Qulipta active Not Available Not Avail able Not Available Vitals Date Recorded Body height Body mass index (BMI) Body weight Systolic blood pressure Diastolic blood pressure Provider Name and Address Organization Details Last Updated DateTime 12/27/2022 165.1 cm 44.6 kg/m2 362068.0 4 g 138 mm[Hg] 92 mm[Hg] [facility] 3 10:17:27 Date Recorded Body height Body mass index (BMI) Body weight Systolic blood pressure Diastolic blood pressure Provider Name and Address Organization Details Last Updated DateTime 09/14/2022 165.1 cm 43.6 kg/m2 693930.4 8 g 138 mm[Hg] 92 mm[Hg] [facility] 2 13:33:48 Social History Question Answer Notes LastModified by Organizat ion Details LastModified Time Tobacco Smoking Status Never Smoker [facility] 09/14/2022 13:30:10 Do You Use Protection During Sex? No Information not available 12/27/2022 What Is Your Relationship Status? Information not available 12/27/2022 Are You Sexually Active? Yes [email or web address] Information not available 12/27/2022 Sex: Female Functional Status Question Answer Note LastModified by Organizat ion Details LastModified Time Do you use any illicit or recreational drugs? No Information not available 12/27/2022 Do you or have you ever used any other forms of tobacco or nicotine? No [email or web address] Information not available 12/27/2022 What is your level of alcohol consumption? None [email or web address] Information not available 12/27/2022 Mental Status None recorded. Family History Relationship Description Onset Age of this Age Resolved Age Notes LastModified by Organization Details LastModified Time Father Diabetes mellitus [email or web address] Not available 2021 13:29:35 Maternal Grandmother Malignant neoplasm of female breast Not available 12/27 10:12:18 Maternal Aunt Malignant neoplasm of female breast [email or web address] Not available 12/27 10:12:18 Mother Endometrial carcinoma [email or web address] Not available 12/27 10:12:18 Notes:Cancer: mother Medical History No medical history recorded. Gynecological History Statement/Question Response Date of Last Mammogram 08/16/2021 Are your periods regular? HPV Vaccine N Date of Last Pap Smear 10/17/2016 Age at Menarche 11 Hormone Replacement Therapy N Obstetrics History GPAL:G 2 P 0 0 1 1 Type Value Spontaneous 1 Living 1 Total 2 Past Encounters Encounter ID Performer Location Encounter Start Date Encounter Closed Date Diagnosis/Indication Diagnosis SNOMED-CT Code Diagnosis ICD10 Code Diagnosis Note [id number] MD NORMA Connor MD [address] [place] [address] 09/14/2022 13:03:50 09/14/2022 16:06:57 Incomplete emptying of urinary bladder 504523063 R39.14 Lateral cystocele 156704 001 N81.12 Dysuria 53116044 R30.0 will culture via PCL Urethral hypermobility 9520560186 9108 N36.41 Female str ess incontinence 36705808 N39.3 Overactive urinary bladder 149399287 N32.81 Vaginal discharge 214453 006 N89.8 will culture via PCL Prediabetes 811753660 R7 3.03 Anterior v aginal wall prolapse 609618620 N81.10 Prolapse o f female genital organs 47402316 N81.9 stage 3 [id number] LAUREN Arreola MD [address] [place] [address] 12/27/2022 10:08:28 12/27/2022 11:07:25 Postoperative visit 986449887 Z09 Health Concerns Section Related Observation LastModified by Organization Detai ls LastModified Time None Recorded Concern Status LastModified by Organization Details LastModified Time None Recorded Advance Directives Directive None Recorded Payers Encounter Date Sequence Insurance Name Policy Number Policy Baez Covered Member ID Baez Member ID Guarantor Name 09/14/2022 1 [employer] [id number] Kala Porter [id number] Kala Porter 12/27/2022 1 [place] [id number] Kala Porter [id number] Kala Porter Notes Date Note Type Note Provider Name and Address Organization Details Recorded Time 09/14/2022 text/html Pt here for bladder prolapse evaluation. Pt reports feeling a bulge. MD [address] , [place], [address], [facility] 09/14/2022 16:02:36 12/27/2022 text/html Post-OpReported bypatient.Assoc iated Symptoms:no fatigue; normal appetite; no constipation; no nausea; no emesis; no pain; no fever; no bleeding; no dysuria/urinary symptoms; no diarrhea [facility] 12/27/2022 10:54:39 OBGyn Episode No OBEpisode recorded.
--- OUTSIDE RECORDS SUMMARY | 2025-03-26 07:38 | XMS_ITS | Continuity of Care Document ---
Author Organization [facility] Address [address], [address] [place] [address] Care Team Providers Care Lead Slot Technician Name Role Phone [facility] Referring Provider [phone] Assessment Encounter Date Assessment Date Assessment LastModified by Organization Details LastModified Time 03/14/2025 03/14/2025 Kala has developed type 2 diabetes mellitus. She had been drinking sweetened sodas and has discontinued that practice. We recommend beginning the first line trial of metformin. She will start at only one with dinner and gradually increase the dose as it seems to be better tolerated when started at lower dosages. She would be an excellent candidate for a GLP1 agonist. She did take compounded Semaglutide previously but felt it made her sick with GI issues. Hopefully she will be able to tolerate it again in the future as she did lose weight with it but has since gained that weight back. Blood pressure is not at goal so we do advise resuming at least a low dose of lisinopril. She has intermittent wheezing and would like a refill on the rescue inhaler as hers is out of date. We encourage healthy lifestyle choices and in about 3 months we will follow up on labs with her wellness visit. She will contact us in a month regarding the metformin and perhaps then we will be able to consider ordering a GLP1 agonist for her. Not available 03/15/2025 08:09:22 Plan of Treatment Reminders Order Date Submit Date Provider Last Modified By Organization Details Last Modified Time Details Appointments None recorded. Lab None recorded. Referral None recorded. Procedures None recorded. Surgeries None recorded. Imaging None recorded. Medication Orders metformin 500 mg tablet 2024 025 ROMEL Francis [facility], [address] [place], [address], 15:51:53 albuterol sulfate HFA 90 mcg/actuati on aerosol inhaler 2024 025 ROMEL Francis [facility], [address] [place], [address], 12:24:35 lisinopril 10 mg tablet 2024 025 ROMEL Ngstephanie [facility], [address] [place], [address], 15:51:52 Patient TargetsNo targets recorded. Patient InstructionsNo instructions recorded. Reason for Referral None Reported. Problems Name Problem SNOMED Code Status Onset Date Resolution Date Notes Provider Name and Address Organization Details Recorded Time No current problems or disability 189448279 Active [facility] 9 16:09:19 Asthma 175969256 Active 019 Laila Zeng MD [address], [address], [facility] 9 22:08:20 Menopausal symptom 55062994 Active 019 Laila Zeng MD [address], [address], [facility] 9 22:08:28 Body mass index 30+ - obesity 863051042 Active 019 Laila Zeng MD [address], [address], [facility] 9 22:08:33 History of migraine 720908874 Active 019 Laila Zeng MD [address], [address], [facility] 9 22:08:53 Notes:genetic gene to colon cancer Problem Notes None recorded. Procedures Surgical History Date Name Laterality Status Provider Name and Address Organization Details Recorded Time 11/12/19 23 procedure on urinary bladder completed Laila Zeng MD [address], [address], [facility] 12/23/2023 16:45:27 02/15/20 19 oophorectomy completed Laila Zeng MD [address], [address], [facility] 04/06/2019 17:19:35 08/31/20 18 partial hysterectomy completed [facility] 04/06/2019 16:12:37 10/17/19 13 Knee Surgery completed Laila Zeng MD [address], [address], [facility] 04/06/2019 17:18:31 10/17/19 11 perinasal sinusotomy completed [facility] 04/06/2019 16:14:01 10/17/19 11 Colonoscopy completed Laila Zeng MD [address], [address], [facility] 04/06/2019 17:14:19 10/17/19 04 Knee Surgery completed Laila Zeng MD [address], [address], [facility] 04/06/2019 17:18:10 10/17/19 01 Colonoscopy completed Laila Zeng MD [address], [address], [facility] 04/06/2019 17:09:54 Imaging Results None recorded. Procedure Notes None recorded. Medical Equipment None Reported. Allergies Allergen ID Allergen Name Allergen Category Reaction Reaction Severity Criticality Documentation Date Start Date Code Code System Note Provider Name and Address Organization Details Recorded Time 87829 aspirin medicatio n hives severe Not available 04/06/2019 1191 RxNorm troub leisa Ramirez [facility] 9 16:08:53 Medications Name Sig Start Date Stop Date Status Note LastModified by Organization Details LastModified Time amoxicilli n 500 mg capsule Take 2 capsules twice a day by oral route for 10 days. 12/22 completed Not Available Not Available Not Available metformin 500 mg tablet Take 2 tablets twice a day by oral route for 30 days. 2024 active Not Available Not Available Not Avai lable promethazi ne-DM 6.25 mg-15 mg/5 mL oral syrup Take 5 mL every 4 hours by oral route as needed. 07/31 completed Not Available Not Available Not Available azithromyc in 250 mg tablet TAKE 2 TABLETS (500 MG) BY ORAL ROUTE ONCE DAILY FOR 1 DAY THEN 1 TABLET (250 MG) BY ORAL ROUTE ONCE DAILY FOR 4 DAYS 11/16 completed Not Available Not Available Not Available benzonatat e 200 mg capsule TAKE 1 CAPSULE 3 TIMES A DAY BY ORAL ROUTE NEEDED 12/22 completed Not Available Not Available Not Available citalopram 10 mg tablet 04/06 completed Not Available Not Available Not Available valacyclov ir 1 gram tablet Take 1 tablet 3 times a day by oral route for 7 days. 03/14 completed Not Available Not Available Not Available hydrocodon e 5 mg-acetami nophen 325 mg tablet 04/06 completed Not Available Not Available Not Available Levaquin 750 mg tablet 04/06 completed Not Available Not Available Not Available phenazopyr idine 200 mg tablet Take 1 tablet 3 times a day by oral route as needed for 3 days. 2024 active Not Available Not Available Not Avai lable lisinopril 20 mg tablet TAKE 1 TABLET BY MOUTH EVERY DAY 01/28 completed Not Available Not Available Not Available ondansetro n HCl 4 mg tablet 04/06 completed Not Available Not Available Not Available estradiol 0.05 mg/24 hr weekly transderma l patch 07/31 completed Not Available Not Available Not Available sumatripta n 50 mg tablet 1 BY MOUTH NEEDED FOR ACUTE MIGRAINE . MAY REPEAT DOSE X 1 AFTER 2 HOURS. MAXIMUM 200 MG IN 24 HOURS 11/16 completed Not Available Not Available Not Available promethazi ne 6.25 mg-codeine 10 mg/5 mL syrup 04/06 completed Not Available Not Available Not Available topiramate 25 mg tablet Take 1 tablet every day by oral route. 11/16 completed Not Available Not Available Not Available sulfametho xazole 800 mg-trimeth oprim 160 mg tablet 12/16 completed Not Available Not Available Not Available triamcinol one acetonide 0.1 % topical cream 03/14 completed Not Available Not Available Not Available butalbital -acetamino phen-caffe ine 50 mg-325 mg-40 mg tablet as needed only 12/22 completed Not Available Not Available Not Available ondansetro n 8 mg disintegra ting tablet Place 1 tablet 3 times a day by translin gual route as needed for 5 days. 03/14 completed Not Available Not Available Not Available oxycodone- acetaminop hen 5 mg-325 mg tablet 03/14 completed Not Available Not Available Not Available ceftriaxon e 1 gram solution for injection Take 0.25 g by injectio n route. 03/14 completed Not Available Not Available Not Available citalopram 20 mg tablet 04/06 completed Not Available Not Available Not Available amitriptyl ine 25 mg tablet 1 po q pm 03/24 completed Not Available Not Available Not Available estradiol 1 mg tablet Take 1 tablet every day by oral route. 07/24 completed Not Available Not Available Not Available trazodone 100 mg tablet 0.5 -1 po q hs prn sleep active rarely as needed Not Available Not Available Not Available cephalexin 500 mg capsule 04/06 completed Not Available Not Available Not Available pantoprazo le 40 mg tablet,del ayed release 03/14 completed Not Available Not Available Not Available lisinopril 10 mg tablet Take 1 tablet every day by oral route for 90 days. 2024 active Not Available Not Available Not Avai lable promethazi ne 25 mg tablet TAKE 1 TABLET BY MOUTH EVERY FOUR HOURS NEEDED 07/26 completed Not Available Not Available Not Available hydrochlor othiazide 12.5 mg capsule TAKE 1 CAPSULE BY MOUTH EVERY DAY 12/22 completed Not Available Not Available Not Available gabapentin 300 mg capsule Take 1 capsule 3 times a day by oral route as needed for 15 days. 03/14 completed Not Available Not Available Not Available omeprazole 20 mg capsule,de layed release Take 1 capsule every day by oral route. active Not Available Not Available No t Available diclofenac sodium 75 mg tablet,del ayed release TAKE 1 Tablet BY MOUTH TWICE DAILY 07/26 completed Not Available Not Available Not Available montelukas t 10 mg tablet Take 1 tablet every day by oral route. 11/16 completed Not Available Not Available Not Available Levaquin 500 mg tablet 04/06 completed Not Available Not Available Not Available mirtazapin e 15 mg tablet 04/06 completed Not Available Not Available Not Available dexamethas one sodium phosphate 4 mg/mL injection solution Inject 1 mL by intramus cular route. 03/14 completed Not Available Not Available Not Available oxycodone- acetaminop hen 7.5 mg-325 mg tablet 04/06 completed Not Available Not Available Not Available methylpred nisolone 4 mg tablets in a dose pack take as directed for wheezing prn 12/22 completed Not Available Not Available Not Available albuterol sulfate HFA 90 mcg/actuat ion aerosol inhaler Inhale 2 puffs every 4 hours by inhalati on route as needed. 2024 active Not Available Not Available Not Avai lable ketorolac 60 mg/2 mL intramuscu lar solution Inject 1 mL by intramus cular route. 06/11 completed Not Available Not Available Not Available hydrocodon e 7.5 mg-acetami nophen 500 mg tablet 04/06 completed Not Available Not Available Not Available lisinopril 40 mg tablet Take 1 tablet every day by oral route in the evening. 12/22 completed Not Available Not Available Not Available ondansetro n 4 mg disintegra ting tablet 03/14 completed Not Available Not Available Not Available cefdinir 300 mg capsule Take 1 capsule every 12 hours by oral route for 5 days. 06/15 completed Not Available Not Available Not Available fluticason e propionate 50 mcg/actuat ion nasal spray,susp ension 04/06 completed Not Available Not Available Not Available metformin ER 500 mg tablet,ext ended release 24 hr 12/22 completed Not Available Not Available Not Available doxycyclin e hyclate 100 mg tablet 03/14 completed Not Available Not Available Not Available amoxicilli n 875 mg-potassi um clavulanat e 125 mg tablet Take 1 tablet every 12 hours by oral route with meals. 03/14 completed Not Available Not Available Not Available oxycodone 5 mg tablet 04/06 completed Not Available Not Available Not Available ciprofloxa lm 0.3 %-dexameth asone 0.1 % ear drops,susp ension 03/14 completed Not Available Not Available Not Available topiramate 50 mg tablet TAKE 1 TABLET BY MOUTH EVERY EVENING 07/24 completed Not Available Not Available Not Available nitrofuran toin monohydrat e/macrocry stals 100 mg capsule Take 1 capsule every 12 hours by oral route with meal(s) for 7 days. 2024 active Not Available Not Available Not Avai lable multivitam in 1 po daily active Not Available Not Available No t Available ondansetro n HCl (PF) 4 mg/2 mL injection solution Take 1 mL by injectio n route. 06/11 completed Not Available Not Available Not Available hydrochlor othiazide 12.5 mg tablet Take 1 tablet every day by oral route. 07/24 completed Not Available Not Available Not Available Symbicort 80 mcg-4.5 mcg/actuat ion HFA aerosol inhaler Inhale 2 puffs twice a day by inhalati on route for 15 days. 02/16 completed Not Available Not Available Not Available budesonide -formotero l HFA 160 mcg-4.5 mcg/actuat ion aerosol inhaler Inhale 2 puffs twice a day by inhalati on route for 30 days. 03/14 completed Not Available Not Available Not Available Prefera-OB 28 mg-6 mg-1 mg tablet 04/06 completed Not Available Not Available Not Available Z-Tuss E 30 mg-9 mg-200 mg/5 mL oral liquid 04/06 completed Not Available Not Available Not Available Myrbetriq 50 mg tablet,ext ended release 1 po daily 12/22 completed Not Available Not Available Not Available Asmanex HFA 100 mcg/actuat ion aerosol inhaler Inhale 2 puffs twice a day by inhalati on route for 30 days. 12/22 completed Not Available Not Available Not Available Ubrelvy 100 mg tablet 100 MG BY MOUTH ONCE NEEDED FOR HEADACHE OR AURA; TAKE 1 TABLET / 100 MG AT ONSET OF AURA/HEA DACHE. MAY REPEAT AFTER 2 HOURS IF SYMPTOMS 12/22 completed Not Available Not Available Not Available Qulipta 60 mg tablet Take 1 tablet every day by oral route at bedtime. 12/22 completed Not Available Not Available Not Available FlorastorS elect Gut Boost 250 mg-300 mg capsule Take 1 capsule twice a day by oral route for 10 days. 03/14 completed Not Available Not Available Not Available Vitals Date Recorded Body height Body mass index (BMI) Body weight Heart rate Oxygen saturation Oxygen saturation in Arterial blood by Pulse oximetry Body temperature Systolic blood pressure Diastolic blood pressure Provider Name and Address Organization Details Last Updated DateTime 5 167.64 cm 40.7 kg/m2 333822. 38 g 87 /min 98 % 98 % 97.5 [degF] 147 mm[Hg] 96 mm[Hg] [facility] 5 11:44:36 Social History Question Answer Notes LastModified by Organizat ion Details LastModified Time Tobacco Smoking Status Former Smoker Not Available [facility] 08/12/2020 03:11:17 Do You Have An Advance Directive? No [id number] Information not available 08/12/2020 Animal Exposure? Yes Informa tion not available 04/06/2019 Is Blood Transfusion Acceptable In An Emergency? Yes [id number] Information not available 08/12/2020 What Is Your Level Of Caffeine Consumption? Moderate [id number] Information not available 08/12/2020 Diabetes No Information n ot available 04/06/2019 What Type Of Diet Are You Following? REGULAR [id number] Information not available 08/12/2020 Education 2 Year College Information not available 04/06/2019 What Is The Highest Grade Or Level Of School You Have Completed Or The Highest Degree You Have Received? AS00870-0 Information not available 07/26/2021 Who Is Your Employer? [employer] [id number] Information not available 08/12/2020 Family History Of Heart Disease? No Information not available 04/06/2019 Are There Any Guns Present In Your Home? Yes [id number] Information not available 08/12/2020 Which Of Your Hands Is Dominant? Right [id number] Information not available 08/12/2020 High Blood Pressure No Information not available 04/06/2019 High Cholesterol No Informa tion not available 04/06/2019 Live Alone Or With Others? With Others Information not available 04/06/2019 Marital Status Informati on not available 04/06/2019 What Was The Date Of Your Most Recent Tobacco Screening? 03/14/2025 Information not available 03/14/2025 How Many Children Do You Have? 1 [id number] Information not available 08/12/2020 Do You Use Your Seat Belt Or Car Seat Routinely? Yes [id number] Information not available 08/12/2020 Seat Belts Used Routinely Yes Information not available 04/06/2019 Do You Have Any Siblings? 1 [id number] Information not available 08/12/2020 Smoke Alarm In Home Yes Information not available 04/06/2019 How Much Tobacco Do You Smoke? No 1 PPW [id number] Information not available 08/12/2020 General Stress Level High Information not available 04/06/2019 Do You Use Sunscreen Routinely? Yes [id number] Information not available 08/12/2020 How Many Years Have You Smoked Tobacco? 3 [id number] Information not available 08/12/2020 Year In School College Informati on not available 04/06/2019 Sex: Female Functional Status Question Answer Note LastModified by Organizat ion Details LastModified Time What is your level of alcohol consumption? Occasional [id number] Information not available 08/12/2020 Are you currently employed? Yes [id number] Information not available 08/12/2020 Are you able to care for yourself? 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 Occasional [id number] Information not available 08/12/2020 What type of noise exposure are you exposed to? Firearms [id number] Information not available 08/12/2020 Mental Status None recorded. Family History Relationship Description Onset Age of this Age Resolved Age Notes LastModified by Organization Details LastModified Time Mother Diabetes mellitus Not available 03/18 16:09:58 Mother Genetic finding has BRCCA gene Not available 04/06/2019 17:08:53 Mother Endometrial carcinoma 58 Not available 2023 17:00:07 Father Diabetes mellitus Not available 03/18 16:10:06 Maternal Grandmother Malignant tumor of breast 69 Not available 2018 17:06:49 Maternal Grandmother Malignant tumor of peritoneum 69 metast asized to brain Not available 04/06/2019 17:07:27 Maternal Aunt Malignant tumor of breast 35 still living 20 years later. Not available 04/06/2019 17:08:23 Medical History Condition Response Coronary Artery Disease N Gout N Kidney Stones N Blood Diseases N Hyperthyroidism N Hypothyroidism N Depression N COPD N Developmental or Behavioral Disorders N Eczema, Hives or other skin conditions N Anxiety Disorder N Muscle, Joint, or Bone Problems N Vision or Eye Problems N Arthritis N Serious Illness or Injuries N Congenital Anomalies N Cancer N Stroke N Bladder or Kidney Problems N Hospital Admission other than Y High Cholesterol N Liver Disease N Fibromyalgia N Kidney Disease N Heart Problems N Ear or Hearing Problems N ADD or ADHD N Thyroid Problems N Skin Problems N Anemia N Constipation Y Diabetes N Bedwetting N Seizures/Epilepsy N Tuberculosis N Diverticulitis N Asthma Y Allergies N GERD/Reflux N Heart Disease N Pulmonary Embolism N Hypertension N Osteoporosis N Chicken Pox Y Gynecological HistoryNo gynecological history recorded. Obstetrics History GPAL:G 2 P 1 1 1 1 Type Value Full Term 1 Spontaneous 1 Premature 1 Living 1 Total 2 Immunizations Vaccine Type Date Status Note Provider Nam e and Address Organization Details Recorded Time Tdap 9 completed Not Available [facility] 11/03/2019 02:12:10 Influenza, recombinant, quadrivalent, PF 1 completed Not Available [facility] 07/24/2021 14:29:11 Influenza, recombinant, quadrivalent, PF 2 completed Not Available [facility] 08/10/2022 11:26:08 pneumococcal polysaccharide PPV23 4 completed Laila Zeng MD [address], [address], [facility] 12/25/2023 16:04:39 Influenza, split virus, quadrivalent, preservative 9 completed Laila Zeng MD [address] [place] [address], [place], [address], [facility] 07/31/2019 17:09:22 COVID-19 vaccine, vector-nr, rS-ChAdOx1, PF, 0.5 mL 1 completed [facility] 03/30/2021 10:42:22 COVID-19, mRNA, LNP-S, PF, 100 mcg/0.5mL dose or 50 mcg/0.25mL dose 2 completed Laila Zeng MD [address] [place] [address], [place], [address], [facility] 01/28/2022 12:00:15 Past Encounters Encounter ID Performer Location Encounter Start Date Encounter Closed Date Diagnosis/Indication Diagnosis SNOMED-CT Code Diagnosis ICD10 Code Diagnosis Note [id number] Laila Zeng MD [facility] [address] [facility], [facility] [address] [place] [address] 03/14/2025 11:25:54 03/15/2025 09:31:35 Essential hypertension 17018123 I10 Wheezing 18482152 R06.2 Type 2 jude betes mellitus 70484435 E11.9 Health Concerns Section Related Observation LastModified by Organization Detai ls LastModified Time None Recorded Concern Status LastModified by Organization Details LastModified Time None Recorded Payers Encounter Date Sequence Insurance Name Policy Number Policy Baez Covered Member ID Baez Member ID Guarantor Name 03/14/2025 1 [employer] [id number] Hussein Porter [id number] Kala Porter Notes Date Note Type Note Provider Name and Address Organization Details Recorded Time 03/14/2025 text/html she has gained back 30 pounds since stopping the compounded semaglutide and now has developed type 2 diabetes mellitus. Since realizing that she has completely stopped sugar laden beverages especially the sodas.Her has diabetes as well and is using Ozempic since it is covered on their insurance plan.She also had stopped her BP medications but she is not at goal and we discussed the Lisinopril is also renal protective. Laila Zeng MD [address] [facility], [facility] [address], [place], [address], [facility] 03/15/2025 08:09:44 OBGyn Episode No OBEpisode recorded.
--- OUTSIDE RECORDS SUMMARY | 2025-03-26 07:38 | XMS_ITS | Clinical Summary ---
Author Organization [employer] Address [address] [place] [address] Care Team Providers Care Outside Property Agent Name Role Phone Laila Zeng MD Primary Care Provider [phone] Allergies Active Allergy Reactions Criticality Noted Date Comments Aspirin Hives High 11/09/2022 Medications oxyCODONE-aceta minophen (PERCOCET) 5-325 mg per tablet Take 1 tablet by mouth every 6 (six) hours as needed for pain (pain not controlled with Tylenol or ibuprofen) for up to 10 doses Look-alike/So und-alike medication. 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 Urinary, incontinence, stress female 11/09/2022 Social History Tobacco Use Types Packs/Day Years Used Date Smoking Tobacco: Never Smokeless Tobacco: Never Tobacco Cessation:Counseling Given: Not Answered Alcohol Use Standard Drinks/Week Comments Never 0 (1 standard drink = 0.6 oz pur e alcohol) Interpersonal Safety Answer Date Record ed Family or friends hurt you Not on file 11/03 Family or friends insult you Not on file Family or friends threaten you Not on file 0 11/03/2023 Family or friends scream or curse at you Not on file 11/03/2023 Housing Stability Answer Date Recorded Living situation today Not on file Living situation problems Not on file 2023 Family and Community Support Answer Darnell e Recorded Help with Day to Day Activities Not on file 11/03/2023 Feeling Lonely or Isolated Not on file 11/03 Educational Attainment Answer Date Billy rded Speak language other than Croatian at home Not on file 11/03/2023 Want help with school or training Not on file 11/03/2023 Depression Answer Date Recorded PHQ-2 Risk Not on file 11/03/2023 Disabilities Answer Date Recorded Difficulty concentrating Not on file 024 Difficulty doing errands alone Not on file 0 11/03/2023 Substance Use Answer Date Recorded Used prescription meds for non-medical reasons N ot on file 11/03/2023 Used illegal drugs past 12 months Not on file 11/03/2023 Comments No Sex and Gender Information Value Date Recorded Sex Assigned at Not on file Legal Sex Female 5:06 PM CDT Gender Identity Not on file Sexual Orientation Not on file Last Filed Vital Signs Vital Sign Reading Time Taken Comments Blood Pressure 172/83 08/19/2024 1:45 PM EST Pulse 68 08/19/2024 3:30 PM EST Temperature 36.1 C (96.9 F) 08/19/2024 12:01 PM EST Respiratory Rate 20 08/19/2024 3:30 PM EST Oxygen Saturation 96% 08/19/2024 3:30 PM EST Inhaled Oxygen Concentration - - Weight 111.6 kg (246 lb) 08/19/2024 12:01 PM EST Height 167.6 cm (5' 6 ) 08/19/2024 12:01 PM EST Body Mass Index 39.71 08/19/2024 12:01 PM EST Plan of Treatment Health Maintenance Due Date Last Done Comments Depression Screening (12+) 1993 HIV Screening 1996 Hepatitis C Screening 1999 Pap Smear 2002 Breast Cancer Screening 2021 COVID-19 VACCINE ( - 2023-2 5 season) 2024 01/18/2022, 01/22/2021, 01/22/2021 Influenza Vaccine (Season Ended) 2025 08/10/2022, 07/24/2021 Tobacco Cessation Counseling and Screening (12+) 08/19/2025 08/19/2024 Lipid Panel 11/12/2025 11/12/2022 DTAP/TDAP/TD VACCINES (3 - T d or Tdap) 04/06/2029 04/06/2019, 08/05/1997 Pneumococcal Vaccine: 0-49 Years Aged Out 12/23/2023 No longer eligible b ased on patient's age to complete this topic Medical Devices Implanted Type Area Electrical Designer Drafter Device Identifier Shelf Expiration Date Model / Serial / Lot Imp Stravix 2x4cm [id number] - [id number] Implanted:Qty : 1 on 11/12/2022 by Norma Wiley MD at [facility] IMPLANTS N/A: Pelvis [employer] 05/10/2025 [id number] / [id number] Dermis [place] 4x7cm [id number] - [id number] Implanted:Qty : 1 on 11/12/2022 by Norma Wiley MD at [facility] IMPLANTS N/A: Pelvis [employer] A/S:COLOPLAST 06/16/2025 [id number] / [id number] / [id number] Procedures Procedure Name Priority Date/Time Associated Diagnosis Comments LIPID PANEL Routine 11/12/2022 7:17 AM EST from Last 3 Months or Most Recently Relevant to Health Maintenance Results * (ABNORMAL) Lipid panel (11/12/2022 7:17 AM EST) Triglycerides 270(H) 0 - 249 mg/dL 11/12/2022 7:59 AM EST [facility] Cholesterol 188 0 - 199 mg/dL 11/12/2022 7:59 AM EST [facility] Comment: 200 to 239 mg/dL = Moderate (borderline) >239 mg/dL = High HDL Cholesterol 29(L) >=40 mg/dL 11/12/2022 7:59 AM EST [facility] Comment: >=60 mg/dL = Desirable <40 mg/dL = Increased Risk All other components are listed individually or are calculations VLDL Cholesterol 54(H) 5 - 40 mg/dL 11/12/2022 7:59 AM EST [facility] Cholesterol/HDL ratio 6.5(H) 0.0 - 3.2 11/12/2022 7:59 AM EST [facility] LDl/HDL Ratio 4 0 - 4 11/12/2022 7:59 AM EST [facility] LDL Cholesterol, Calculated 105(H) 0 - 99 mg/dL 11/12/2022 7:59 AM EST [facility] RISK COMP 6 11/12/2022 7:59 AM EST [facility] Blood Venipuncture / Unknown 11/12/2022 7:17 AM EST 11/12/2022 7:27 AM EST Norma Wiley MD LAB BLOOD ORDERABLES Final Re sult [facility] [address] [employer] [address] [phone] from Last 3 Months or Most Recently Relevant to Health Maintenance Insurance BLUE CROSS/BLUE SHIELD Advance Directives For more information, please contact: [phone] * Full Code (Latest Code Status on File) Date Activated Date Inactivated Comments 11/12/2022 6:27 AM 11/12/2022 2:05 PM * Full Code Date Activated Date Inactivated Comments 11/12/2022 5:21 AM 11/12/2022 6:27 AM Care Teams Outside Property Agent Relationship Specialty Start Date End Date Azucena, Laila L, MD [address] [facility] [address] [place] [address] PCP - General Family Medicine 05/15/24
--- OUTSIDE RECORDS SUMMARY | 2025-03-26 07:38 | XMS_ITS | Referral Summary ---
Author Organization [employer] Address [address] [place] [address] Care Team Providers Care Scrap Drop Operator Name Role Phone Laila Zeng MD Primary Care Provider [phone] Allergies Active Allergy Reactions Criticality Noted Date [...] Date Billy rded Speak language other than Greenlandic at home Not on file 11/03/2023 Want [...] 08/19/2024 12:01 PM EST Plan of Treatment Not on file Medical Devices Implanted Type Area Steam Conditioning Operator Device Identifier Shelf Expiration Date Model / Serial / Lot Imp Stravix 2x4cm [id number] - [id number] Implanted:Qty : 1 on 11/12/2022 by Nomra Wiley MD at [facility] IMPLANTS N/A: Pelvis [employer] 05/10/2025 [id number] / [id number] / [id number] Dermis [place] 4x7cm [id number] - [id number] Implanted:Qty : 1 on 11/12/2022 by Norma Wiley MD at [facility] IMPLANTS N/A: Pelvis [employer]LAST A/S:COLOPLAST 06/16/2025 [id number] / [id number] / [id number] Procedures Procedure Name Priority Date/Time Associated Diagnosis Comments LIPID PANEL Routine 11/12/2022 7:17 AM EST from Last 3 Months or Most Recently Relevant to Health Maintenance Results * (ABNORMAL) Lipid panel (11/12/2022 7:17 AM EST) Triglycerides 270(H) 0 - 249 mg/dL 11/12/2022 7:59 AM EST [facility] Cholesterol 188 0 - 199 mg/dL 11/12/2022 7:59 AM [facility] Comment: 200 to 239 mg/dL = Moderate (borderline) >239 mg/dL = High HDL Cholesterol 29(L) >=40 mg/dL 11/12/2022 7:59 AM EST [facility] Comment: >=60 mg/dL = Desirable <40 mg/dL = Increased Risk All other components are listed individually or are calculations VLDL Cholesterol 54(H) 5 - 40 mg/dL 11/12/2022 7:59 AM [facility] Cholesterol/HDL ratio 6.5(H) 0.0 - 3.2 11/12/2022 7:59 AM [facility] LDl/HDL Ratio 4 0 - 4 11/12/2022 7:59 AM [facility] LDL Cholesterol, Calculated 105(H) 0 - 99 mg/dL 11/12/2022 7:59 AM [facility] RISK COMP 6 11/12/2022 7:59 AM [facility] Blood Venipuncture / Unknown 11/12/2022 7:17 AM EST 11/12/2022 7:27 AM EST us Norma Wiley MD LAB BLOOD ORDERABLES Final [place] [address], [facility] [phone] from Last 3 Months or Most Recently Relevant to Health Maintenance Insurance BLUE CROSS/BLUE SHIELD Advance Directives For more information, please contact: [phone] * Full Code (Latest Code Status on File) Date Activated Date Inactivated Comments 11/12/2022 6:27 AM 11/12/2022 2:05 PM * Full Code Date Activated Date Inactivated Comments 11/12/2022 5:21 AM 11/12/2022 6:27 AM Care Teams Scrap Drop Operator Relationship Specialty Start Date End Date Laila Zeng MD [address] [facility] [address] [place] [address] PCP - General Family Medicine 05/15/24
--- OUTSIDE RECORDS SUMMARY | 2025-03-26 07:39 | XMS_ITS | Data Portability ---
Author Organization [place] - [facility] ADMIN Address [address] [place] [id number] Care Team Providers Care Firefighter Type One Name Role Phone RICHI HUANG Primary Care Provider Assessment No assessment recorded. Plan of Treatment Reminders Order Date Submit Date Provider Last Modified By Organization Details Last Modified Time Details Appointments None recorded. Lab PT/INR 2023 024 alvarez [facility] (Lab Registration) , [address] [place] [address] [place], [address], 4 09:53:38 celiac disease comprehens irineo panel, serum 2023 024 [facility] (Lab Registration) , [address] [place] [address] [place], [address], 4 09:53:38 hepatic function panel, serum 2023 [email or web address] [place] (Lab Registration) , [address] [place] [address] [place], [address], 4 09:53:38 gamma-glut amyl transferas e (ggt), serum 2023 024 ROMEL [facility] (Lab Registration) , [address] [place] [address] [place], [address], 4 13:15:30 igg, quantitati ve, serum 2023 024 [facility] (Lab Registration) , [address] [facility] [place], [address], 4 09:53:38 hepatitis panel (A+B+C), acute, serum 2023 [facility] (Lab Registration) , [address] [facility] [place], [address], 4 09:53:39 DELMA (antinucle ar antibodies ) screen, serum 2023 024 [facility] (Lab Registration) , [address] [facility] [place], [address], 4 14:16:02 mitochondr ial M2 igg Ab, serum 2023 [facility] (Lab Registration) , [address] [facility] [place], [address], 4 14:12:13 smooth muscle Ab, serum 2023 024 [facility] (Lab Registration) , [address] [facility] [place], [address], 4 09:53:39 alpha-1-an titrypsin (aat) phenotype, serum 2023 024 [facility] (Lab Registration) , [address] [facility] [place], [address], 4 09:53:39 iron + TIBC + ferritin, serum 2023 024 [facility] (Lab Registration) , [address] [facility] [place], [address], 4 09:53:39 ceruloplas min, serum 2023 024 [facility] (Lab Registration) , [address] [facility] [place], [address], 4 11:17:49 hemochroma tosis mutation (hfe), blood/tiss ue 2023 [facility] (Lab Registration) , [address] [place] [address] [place], [address], 4 09:53:39 nonalcohol ic steatohepa titis + fibrosis panel, serum or plasma 2023 [facility], [address], [place], [address], 4 09:53:39 Referral None recorded. Procedures colonoscop y procedure (PROC) 2023 [email or web address] Cowan MD, [address] [place] [address] [facility], [place], [address], 4 15:45:01 Surgeries None recorded. Imaging NM, hepatobili galilea scan, w/ CCK 2023 [facility] (Central Scheduling), [address] [place] [address] [place], [address], 4 15:08:48 Medication Orders pantoprazo le 40 mg tablet,del ayed release 2023 ROMEL [facility], [address] [place], [address], 4 16:57:15 Miralax 17 gram/dose oral powder 2023 024 [email or web address] [facility], [address] [place], [address], 4 15:45:01 Dulcolax (bisacodyl ) 5 mg tablet,del ayed release 2023 024 [email or web address] [facility], [address] [place], [address], 15:45:01 Patient TargetsNo targets recorded. Patient InstructionsNo instructions recorded. Reason for Referral None Reported. Results Created Date Observation Date Name Description Value Unit Range Abnormal Flag Note LastModifiedBy Organization Detail LastModifiedTime 08/17/20 24 08/17/2024 HEPAT IC FUNCT ION PANEL total protein 7.9 g/dL 6.2-8. 2 Not Available [facility] (Pre-Op Clinic) [address] [place] [address] [place], [address], 08/17/2024 13:15:29 08/17/20 24 08/17/2024 HEPAT IC FUNCT ION PANEL albumin 4.4 g/dL 3.5-5. 0 Not Available [facility] (Pre-Op Clinic) [address] [place] [address] [place], [address], 08/17/2024 13:15:29 08/17/20 24 08/17/2024 HEPAT IC FUNCT ION PANEL bilirubin total 1.6 mg/dL 0.2-1. 3 high Not Available [facility] (Pre-Op Clinic) [address] [place] [address] [place], [address], 08/17/2024 13:15:29 08/17/20 24 08/17/2024 HEPAT IC FUNCT ION PANEL bilirubin direct 0.40 mg/dL 0.0-0. 3 high Not Available [facility] (Pre-Op Clinic) [address] [place] [address] [place], [address], 08/17/2024 13:15:29 08/17/20 24 08/17/2024 HEPAT IC FUNCT ION PANEL bilirubin indirect 1.20 Not Available [facility] (Pre-Op Clinic) [address] [place] [address] [place], [address], 08/17/2024 13:15:29 08/17/20 24 08/17/2024 HEPAT IC FUNCT ION PANEL AST (SGOT) 22 IU/L 14-36 Not Available [facility] (Pre-Op Clinic) [address] [place] [address] [place], [address], 08/17/2024 13:15:29 08/17/20 24 08/17/2024 HEPAT IC FUNCT ION PANEL ALT (SGPT) 25 IU/L 0-35 Pleas e note new refer ence inter brandt for ALT. Due to a recen t manuf actur er metho dolog y brock corbin, the refer ence inter brandt for ALT is lower effec tive February 05, 2021. Not Available [facility] (Pre-Op Clinic) [address] [place] [address] [place], [address], 08/17/2024 13:15:29 08/17/20 24 08/17/2024 HEPAT IC FUNCT ION PANEL alk phosphatase 98 IU/L 38-126 Not Available [facility] (Pre-Op Clinic) [address] [place] [address] [place], [address], 08/17/2024 13:15:29 08/17/20 24 08/17/2024 HEPAT IC FUNCT ION PANEL note Unles s other rodríguez noted testi ng perfo [facility]med at: [facility] [address] [place] [address] Young brown MD Not Available [facility] (Pre[facility]Op Clinic) [address] [place] [address] [place], [address], 08/17/2024 13:15:29 08/17/20 24 08/17/2024 GAMMA GT GGT 55 IU/L 5-85 Not Available [facility] (Pre[facility]Op Clinic) [address] [place] [address] [place], [address], 08/17/2024 13:15:30 08/17/20 24 08/17/2024 GAMMA GT note Unles s other rodríguez noted testi ng perfo rmed at: [facility] [address] [place] [address] Young brown MD Not Available [facility] (Pre-Op Clinic) [address] [place] [address] [place], [address], 08/17/2024 13:15:30 08/17/20 24 08/17/2024 IRON STUDY W FE/TI BC/UI BC/%S AT iron 106 ug/dL 37-170 Not Available [facility] (Pre-Op Clinic) [address] [place] [address] [place], [address], 08/17/2024 13:16:35 08/17/20 24 08/17/2024 IRON STUDY W FE/TI BC/UI BC/%S AT total iron bind cap. 313 ug/dL 265-49 7 Not Available [facility] (Pre-Op Clinic) [address] [place] [address] [place], [address], 08/17/2024 13:16:35 08/17/20 24 08/17/2024 IRON STUDY W FE/TI BC/UI BC/%S AT unsaturated iron binding cap 207 ug/dL 150-37 5 Not Available [facility] (Pre-Op Clinic) [address] [place] [address] [place], [address], 08/17/2024 13:16:35 08/17/20 24 08/17/2024 IRON STUDY W FE/TI BC/UI BC/%S AT % saturation 34 % 15-55 Not Available [facility] (Pre-Op Clinic) [address] [place] [address] [place], [address], 08/17/2024 13:16:35 08/17/20 24 08/17/2024 IRON STUDY W FE/TI BC/UI BC/%S AT note Unles s other rodríguez noted testi ng perfo rmed at: [facility] [address] [place] [address] Young brown MD Not Available [facility] (Pre[facility]Op [facility]) [address] [place] [address] [place], [address], 08/17/2024 13:16:35 08/17/20 24 08/17/2024 NIRMAL TIN ferritin 91 NG/mL 3-105 Not Available [facility] (Pre-Op Clinic) [address] [place] [address] [place], [address], 08/17/2024 13:32:49 08/17/20 24 08/17/2024 NIRMAL TIN note Unles s other rodríguez noted testi ng perfo rmed at: [facility] [address] [place] [address] Young brown MD Not Available [facility] (Pre[facility]Op Clinic) [address] [place] [address] [place], [address], 08/17/2024 13:32:49 08/17/20 24 08/17/2024 PT (PROT KRISTIE) W INR protime 10.6 secon ds 9.0-12 .0 Not Available [facility] (Pre[facility]Op Clinic) [address] [place] [address] [place], [address], 08/17/2024 23:54:38 08/17/20 24 08/17/2024 PT (PROT KRISTIE) W INR INR 1.0 2.0-3. 0 low MONIT OR COUMA DIN THERA PY WITH INR VALUE ONLY. * THERA PEUTI C RANGE S FOR INR 2.0 - 3.0 USUAL THERA PEUTI C RANGE 2.5 - 3.5 FOR PATIE NTS WITH A HISTO RY OF MULTI PLE DEEP VEIN THROM BOLYT IC EVENT S OR MECHA NICAL HEART VALVE . Not Available [facility] (Pre-Op Clinic) [address] [place] [address] [place], [address], 08/17/2024 23:54:38 08/17/20 24 08/17/2024 PT (PROT KRISTIE) W INR note Unles s other rodríguez noted testi ng perfo rmed at: [facility] [address] [place] [address] Young brown MD Not Available [facility] (Pre[facility]Op Clinic) [address] [place] [address] [place], [address], 08/17/2024 23:54:38 08/17/20 24 08/17/2024 ACUTE VIRAL HEPAT ITIS PANEL note Unles s other rodríguez noted testi ng perfo rmed at: [facility] [address] [place] [address] Young brown MD Not Available [facility] (Pre[facility]Op Clinic) [address] [place] [address] [place], [address], 08/18/2024 07:13:33 08/17/20 24 08/18/2024 ACUTE VIRAL HEPAT ITIS PANEL hep A Ab, IgM Negati ve negati ve A negat irineo anti- HAV IgM resul t sugge sts no recen t or curre nt HAV infec tion. Not Available [facility] (Pre[facility]Op Clinic) [address] [place] [address] [place], [address], 08/18/2024 07:13:33 08/17/20 24 08/18/2024 ACUTE VIRAL HEPAT ITIS PANEL HBsAg screen Negati ve negati ve Not Available [facility] (Pre-Op Clinic) [address] [place] [address] [place], [address], 08/18/2024 07:13:33 08/17/20 24 08/18/2024 ACUTE VIRAL HEPAT ITIS PANEL hep B core Ab, IgM Negati ve negati ve Not Available [facility] (Pre[facility]Op [facility]) [address] [place] [address] [place], [address], 08/18/2024 07:13:33 08/17/20 24 08/18/2024 ACUTE VIRAL HEPAT ITIS PANEL hep C virus Ab Non Reacti ve non reacti ve [facility] [address] [place] [address] [place] [address] Lab Direc tor: Reyes baumann PhD, Phone : [phone] Not Available [facility] (Pre-Op Clinic) [address] [place] [address] [place], [address], 08/18/2024 07:13:33 08/17/20 24 08/18/2024 ACUTE VIRAL HEPAT ITIS PANEL interpretati on: Commen t . Not infec yulia with HCV unles s early or acute infec tion is suspe cted (whic h may be delay ed in an immun ocomp romis ed indiv idual ), or other evide nce exist s to indic ate HCV infec tion. Perfo rmed at: - [facility] [address] [place] [address] Lab Direc tor: Reyes baumann PhD, Phone : [phone] Not Available [facility] (Pre-Op Clinic) [address] [place] [address] [place], [address], 08/18/2024 07:13:33 08/17/20 24 08/17/2024 CERUL OPLAS MIN note Unles s other rodríguez noted testi ng perfo rmed at: [facility] [address] [place] [address] Young brown MD Not Available [facility] (Pre-Op Clinic) [address] [place] [address] [place], [address], 08/18/2024 11:17:49 08/17/20 24 08/18/2024 CERUL OPLAS MIN ceruloplasmi n 26.5 mg/dL 19.0-3 9.0 Perfo rmed at: - [facility] [address] [place] [address] Lab Direc tor: Reyes baumann PhD, Phone : [phone] Not Available [facility] (Pre-Op Clinic) [address] [place] [address] [place], [address], 08/18/2024 11:17:49 08/17/20 24 08/17/2024 BETTY BERTRAND E (ACTI N) AB'S note Unles s other rodríguez noted testi ng perfo rmed at: [facility] [address] [place] [address] Young brown MD Not Available [facility] (Pre[facility]Op Clinic) [address] [place] [address] [place], [address], 08/18/2024 14:12:12 08/17/20 24 08/18/2024 BETTY H MUSCL E (ACTI N) AB'S actin 10 units 0-19 Negat irineo 0 - 19 Weak posit irineo 20 - 30 Moder ate to stron g posit irineo >30 . Actin Antib odies are found in 52-85 % of patie nts with autoi mmune hepat itis or chron ic activ e hepat itis and in 22% of patie nts with prima ry bilia ry cirrh osis. Perfo rmed at: - [facility] [address] [facility] [place], [place] [address] [place] [address] Lab Direc tor: Reyes baumann PhD, Phone : [phone] Not Available [facility] (Pre[facility]Op Clinic) [address] [place] [address] [place], [address], 08/18/2024 14:12:12 08/17/20 24 08/17/2024 MITOC HONDR IAL ANTIB ODIES note Unles s other rodríguez noted testi ng perfo rmed at: [facility] [address] [place] [address] Young brown MD Not Available [facility] (Pre-Op Clinic) [address] [place] [address] [place], [address], 08/18/2024 14:12:12 08/17/20 24 08/18/2024 MITOC HONDR IAL ANTIB ODIES mitochondria l (M2) antibody <20.0 units 0.0-20 .0 Negat irineo 0.0 - 20.0 Equiv ocal 20.1 - 24.9 Posit irineo >24.9 . Mitoc hondr ial (M2) Antib odies are found in 90-96 % of patie nts with prima ry bilia ry cirrh osis. Perfo rmed at: CB - [facility] [address] [facility] [place] [address] Lab Direc tor: Reyes baumann PhD, Phone : [phone] Not Available [facility] (Pre[facility]Op [facility]) [address] [facility] [place], [address], 08/18/2024 14:12:12 08/17/20 24 08/17/2024 BETH C DISEA SE COMPR EHENS IRINEO note Unles s other rodríguez noted testi ng perfo rmed at: [facility] [address] [place] [address] Young brown MD Not Available [facility] (Pre[facility]Op [facility]) [address] [place] [address] [place], [address], 08/20/2024 14:14:56 08/17/20 24 08/20/2024 BETH C DISEA SE COMPR EHENS IRINEO immunoglobul in A, qn, serum 514 mg/dL 87-352 high Perfo rmed at: - [facility] [address] [place] [address] Lab Direc tor: Reyes baumann PhD, Phone : [phone] [facility]: [facility] [address] [place] [address] Lab Direc tor: Reyes baumann PhD, Phone : [phone] Perfo rmed at: - [facility] [address] [place] [address] Lab Direc tor: Reyes baumann PhD, Phone : [phone] Not Available [facility] (Pre[facility]Op [facility]) [address] [place] [address] [place], [address], 08/20/2024 14:14:56 08/17/20 24 08/20/2024 BETH C DISEA SE COMPR EHENS IRINEO deamidated gliadin abs, IgA 9 units 0-19 Negat irineo 0 - 19 Weak Posit irineo 20 - 30 Moder ate to Stron g Posit irineo >30 Negat irineo 0 - 19 Weak Posit irineo 20 - 30 Moder ate to Stron g Posit irineo >30 Not Available [facility] (Pre-Op Clinic) [address] [place] [address] [place], [address], 08/20/2024 14:14:56 08/17/20 24 08/20/2024 BETH C DISEA SE COMPR EHENS IRINEO deamidated gliadin abs, IgG 4 units 0-19 Negat irineo 0 - 19 Weak Posit irineo 20 - 30 Moder ate to Stron g Posit irineo >30 Negat irineo 0 - 19 Weak Posit irineo 20 - 30 Moder ate to Stron g Posit irineo >30 Not Available [facility] (Pre-Op Clinic) [address] [place] [address] [place], [address], 08/20/2024 14:14:56 08/17/20 24 08/20/2024 BETH C DISEA SE COMPR EHENS IRINEO T-transgluta minase (ttg) IgA <2 U/mL 0-3 Negat irineo 0 - 3 Weak Posit irineo 4 - 10 Posit irineo >10 . Tissu e Trans gluta henri e (tTG) has been ident ified as the endom ysial antig en. Studi es have demon str- ated that endom ysial IgA antib odies have over 99% speci ficit y for glute n sensi tive enter opath y. Negat irineo 0 - 3 Weak Posit irineo 4 - 10 Posit irineo >10 . Tissu e Trans gluta henri e (tTG) has been ident ified as the endom ysial antig en. Studi es have demon str- ated that endom ysial IgA antib odies have over 99% speci ficit y for glute n sensi tive enter opath y. Not Available [facility] (Pre-Op Clinic) [address] [place] [address] [place], [address], 08/20/2024 14:14:56 08/17/20 24 08/20/2024 BETH C DISEA SE COMPR EHENS IRINEO T-transgluta minase (ttg) IgG 3 U/mL 0-5 Negat irineo 0 - 5 Weak Posit irineo 6 - 9 Posit irineo >9 Negat irineo 0 - 5 Weak Posit irineo 6 - 9 Posit irineo >9 Not Available [facility] (Pre[facility]Op [facility]) [address] [place] [address] [place], [address], 08/20/2024 14:14:56 08/17/20 24 08/20/2024 BETH C DISEA SE COMPR EHENS IRINEO endomysial antibody IgA Negati ve negati ve Not Available [facility] (Pre[facility]Op [facility]) [address] [place] [address] [place], [address], 08/20/2024 14:14:56 08/17/20 24 08/17/2024 DELMA SCREE N W REFLE X note Unles s other rodríguez noted testi ng perfo rmed at: [facility] [address] [place] [address] Young brown MD Not Available [facility] (Pre[facility]Op [facility]) [address] [place] [address] [place], [address], 08/20/2024 14:16:02 08/17/20 24 08/20/2024 DELMA SCREE N W REFLE X DELMA direct POSITI VE negati ve delta Not Available [facility] (Pre[facility]Op [facility]) [address] [place] [address] [place], [address], 08/20/2024 14:16:02 08/17/20 24 08/20/2024 DELMA SCREE N W REFLE X anti-DNA (ds) Ab qn 1 IU/mL 0-9 Negat irineo <5 Equiv ocal 5 - 9 Posit irineo >9 Not Available [facility] (Pre[facility]Op [facility]) [address] [place] [address] [place], [address], 08/20/2024 14:16:02 08/17/20 24 08/20/2024 DELMA SCREE N W REFLE X radio board operator announcer antibodies 0.2 ai 0.0-0. 9 Not Available [facility] (Pre[facility]Op [facility]) [address] [place] [address] [place], [address], 08/20/2024 14:16:02 08/17/20 24 08/20/2024 DELMA SCREE N W REFLE X antisclerode rma-70 antibodies <0.2 ai 0.0-0. 9 Not Available [facility] (Pre[facility]Op [facility]) [address] [facility] [place], [address], 08/20/2024 14:16:02 08/17/20 24 08/20/2024 DELMA SCREE N W REFLE X sjogrens anti-ss-A <0.2 ai 0.0-0. 9 Not Available [facility] (Pre[facility]Op [facility]) [address] [facility] [place], [address], 08/20/2024 14:16:02 08/17/20 24 08/20/2024 DELMA SCREE N W REFLE X sjogrens anti-ss-B <0.2 ai 0.0-0. 9 Not Available [facility] (Pre[facility]Op [facility]) [address] [facility] [place], [address], 08/20/2024 14:16:02 08/17/20 24 08/20/2024 DELMA SCREE N W REFLE X anti chromatin antibodies 0.2 ai 0.0-0. 9 Not Available [facility] ([facility]Op [facility]) [address] [facility], [address], 08/20/2024 14:16:02 08/17/20 24 08/20/2024 DELMA SCREE N W REFLE X anti-alejandro-1 <0.2 ai 0.0-0. 9 Not Available [facility] (Pre[facility]Op [facility]) [address] [facility], [address], 08/20/2024 14:16:02 08/17/20 24 08/20/2024 DELMA SCREE N W REFLE X anti-centrom ere B antibodies 3.4 ai 0.0-0. 9 high Not Available [facility] (Pre[facility]Op Clinic) [address] [facility], [address], 08/20/2024 14:16:02 08/17/20 24 08/20/2024 DELMA SCREE N W REFLE X gauthier antibodies <0.2 ai 0.0-0. 9 Not Available [facility] (Pre[facility]Op [facility]) [address] [place] [address] [place], [address], 08/20/2024 14:16:02 08/17/20 24 08/20/2024 DELMA SCRERuth N W REFLE X see below: LATISHA [place] Autoa ntibo dy Disea se Assoc iatio n ----- ----- ----- ----- ----- ----- ----- ----- ----- ----- ----- ----- Condi tion Frequ ency ----- ----- ----- ----- - ----- ----- ----- ----- ---- ----- ---- Antin uclea r Antib yuval, SLE, mixed conne ctive Direc t (DELMA- D) tissu e disea ses ----- ----- ----- ----- - ----- ----- ----- ----- ---- ----- ---- dsDNA SLE 40 - 60% ----- ----- ----- ----- - ----- ----- ----- ----- ---- ----- ---- Chrom atin Drug induc ed SLE 90% SLE 48 - 97% ----- ----- ----- ----- - ----- ----- ----- ----- ---- ----- ---- SSA (Ro) SLE 25 - 35% Sjogr en's Syndr ome 40 - 70% Neona john Lupus 100% ----- ----- ----- ----- - ----- ----- ----- ----- ---- ----- ---- SSB (La) SLE 10% Sjogr en's Syndr ome 30% ----- ----- ----- ----- - ----- ----- ----- ----- --- ----- ---- Sm (anti -Timmy h) SLE 15 - 30% ----- ----- ----- ----- - ----- ----- ----- ----- --- ----- ---- FIELD MAP TECHNICIAN Mixed Conne ctive Tissu e Disea se 95% (U1 nRNP, SLE 30 - 50% anti- ribon ucleo prote in) Polym yosit is and/o r Steward tomyo sitis 20% ----- ----- ----- ----- - ----- ----- ----- ----- ---- ----- ---- Scl-7 0 (anti DNA Scler oderm a (diff use) 20 - 35% topoi jong ase) Crest 13% ----- ----- ----- ----- - ----- ----- ----- ----- ---- ----- ---- Alejandro-1 Polym yosit is and/o r Steward tomyo sitis 20 - 40% ----- ----- ----- ----- - ----- ----- ----- ----- ---- ----- ---- Centr omere B Scler oderm a - Crest varia nt 80% Perfo rmed at: CB - [facility] [address] [facility] [place] [address] Lab Direc tor: Reyes baumann PhD, Phone : [phone] . Autoa ntibo fanny Disea se Assoc iatio n ----- ----- ----- ----- ----- ----- ----- ----- ----- ----- ----- ----- Condi stevie augusty ----- ----- ----- ----- - ----- ----- ----- ----- ---- ----- ---- Antin uclea r Sotero ruizy, SLE, mixed conne ctirineo [facility] t (DELMA- D) freya e disea ses ----- ----- ----- ----- - ----- ----- ----- ----- ---- ----- ---- dsDNA SLE 40 - 60% ----- ----- ----- ----- - ----- ----- ----- ----- ---- ----- ---- Chrom atin Drug induc ed SLE 90% SLE 48 - 97% ----- ----- ----- ----- - ----- ----- ----- ----- ---- ----- ---- SSA (Ro) SLE 25 - 35% Sjogr en's Syndr ome 40 - 70% Neona john Lupus 100% ----- ----- ----- ----- - ----- ----- ----- ----- ---- ----- ---- SSB (La) SLE 10% Sjogr en's Syndr ome 30% ----- ----- ----- ----- - ----- ----- ----- ----- --- ----- ---- Sm (anti -Timmy h) SLE 15 - 30% ----- ----- ----- ----- - ----- ----- ----- ----- --- ----- ---- FIELD MAP TECHNICIAN Mixed Conne ctive Tissu e Disea se 95% (U1 nRNP, SLE 30 - 50% anti- ribon ucleo prote in) Polym yosit is and/o r Steward tomyo sitis 20% ----- ----- ----- ----- - ----- ----- ----- ----- ---- ----- ---- Scl-7 0 (anti DNA Scler oderm a (diff use) 20 - 35% topoi jong ase) Crest 13% ----- ----- ----- ----- - ----- ----- ----- ----- ---- ----- ---- Alejandro-1 Polym yosit is and/o r Steward tomyo sitis 20 - 40% ----- ----- ----- ----- - ----- ----- ----- ----- ---- ----- ---- Centr omere B Scler oderm a - Crest varia nt 80% Perfo rmed at: CB - [facility] [address] [place] [address] Lab Direc tor: Reyes baumann PhD, Phone : [phone] Not Available [facility] (Pre[facility]Op [facility]) [address] [place] [address] [place], [address], 08/20/2024 14:16:02 08/17/20 24 08/17/2024 ALPHA 1 ANTIT RYP TOTAL note Unles s other rodríguez noted testi ng perfo rmed at: [facility] [address] [place] [address] Young brown MD Not Available [facility] (Pre[facility]Op [facility]) [address] [place] [address] [place], [address], 08/23/2024 18:11:31 08/17/20 24 08/23/2024 ALPHA 1 ANTIT RYP TOTAL [id number] trypsin, serum 131 mg/dL 101-18 7 Not Available [facility] (Pre[facility]Op [facility]) [address] [place] [address] [place], [address], 08/23/2024 18:11:31 08/17/20 24 08/23/2024 ALPHA 1 ANTIT RYP TOTAL phenotype (pi) MM Perfo rmed at: - [facility] [address] [place] [address] Lab Direc tor: Reyes baumann PhD, Phone : [phone] Perfo rmed at: - [facility] [place] [place] [address] 0871 Lab Direc tor: Kenia melvin MD, Phone : [phone] MM Pheno type is consi dered to be norm al , produ cing maday l serum level s of alpha -1-pr oteas e inhib itor and not assoc iated with clini isa disea se. Assoc iated A1A total serum level s in other pheno types and their incid ence in the gener al popul ation are shown in the table below . Pheno type Popul ation % funct ion A-1-A T Conc. * Incid ence % miley red to MM (Typi isa Range ) MM 86.5% 100% (96 - 189) MS 8.0% 86% (83 - 161) MZ 3.9% 61% (60 - 111) FM 0.4% 100% (93 - 191) SZ 0.3% 41% (42 - 75) SS 0.1% 64% (62 - 119) ZZ 0.05% 19% (16 - 38) FS 0.05% 70% (70 - 128) FZ Unkno wn 46% (44 - 88) FF Unkno wn Unkno wn *A-1- AT lawanda ntrat ion in the homoz ygous MM pheno type is taken as the refer ence maday quan. Perce nt defic iency in each pheno type is repor yulia relat irineo to this refer ence. Range s used to confi rm pheno type. Perfo rmed at: CB - [facility] n [address] [facility], [facility] [place] [address] 1262 Lab Direc tor: Reyes baumann PhD, Phone : [phone] Perfo rmed at: - [facility] Robby morales [address] [facility] , [place] [address] 2694 Lab Direc tor: Kenia melvin MD, Phone : [phone] Not Available [facility] ([facility]) [address] [place] [address] [place], [address], 08/23/2024 18:11:31 08/17/20 24 08/17/2024 HERED ITARY HEMOC HROMA TOSIS note Unles s other rodríguez noted testi ng perfo rmed at: [facility] [address] [place] [address] Young brown MD Not Available [facility] ([facility]Op [facility]) [address] [place] [address] [place], [address], 08/27/2024 09:10:45 08/17/20 24 08/27/2024 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 In sympt omati c indiv idual s, other cause s of iron overl oad shoul d be evalu ated. See Addit ional Infor matio n and Comme nts. . Addit ional Clini isa Infor matio n: Hered itary hemoc hroma tosis (HFE relat ed) is an autos omal reces sive iron stora ge disor marylou. Patie nts may have a farhana ic diagn osis of hered itary hemoc hroma tosis and never show clini isa sympt oms. Clini isa sympt oms typic ally appea r betwe en 40 to 60 years in males and after menop ause in femal es. Signs and sympt oms may inclu de organ damag e, prima rily in the liver , risk for hepat ocell ular carci noma, diabe olga, and heart disea se due to iron accum ulati on. Life expec tancy may be decre ased in indiv idual s who devel op cirrh osis. Treat ment for clini daljit sympt omati c indiv idual s may inclu de thera peuti c phleb otomy . Liver trans plant may be used to treat end stage liver failu re. For preve ntive care, monit oring for iron overl oad is recom angela d for patie nts who are homoz ygous for c.845 G>A (p.Cy s282T yr) and have yet to exper ience clini isa sympt oms. . Comme nts: The most commo n HFE varia nts assoc iated with hered itary hemoc hroma tosis are c.845 G>A (p.Cy s282T yr), c.187 C>G (p.Hi s63As p), c.193 A>T (p.Se r65Cy s). While patie nts homoz ygous for c.845 G>A (p.Cy s282T yr) are the most likel y to prese nt clini isa sympt oms, less than 10% devel op clini daljit signi fican t iron overl oad with tissu e and organ damag e. . Farhana ic couns eling is recom angela d to discu ss the poten tial clini isa impli catio ns of posit irineo resul ts, as well as recom menda tions for testi ng famil y membe rs. Farhana ic Coord inato rs are avail able for healt h care provi ders to discu ss resul ts at [phone] . Test Detai ls: Three varia nts kayla zed: c.845 G>A (p.Cy s282T yr), commo nly refer red to as C282Y c.187 C>G (p.Hi s63As p), commo nly refer red to as H63D c.193 A>T (p.Se r65Cy s), commo nly refer red to as S65C . Metho ds/Li mitat ions: DNA Kayla sis of the HFE gene ([id number]) was perfo rmed by PCR ampli ficat ion follo wed by restr ictio n enzym e diges tion kayla ses. Resul ts must be combi idalia with clini isa infor matio n for the most accur ate inter preta tion. Molec ular- based testi ng is highl y accur ate, but as in any labor atory test, diagn ostic error s may occur . False posit irineo or false negat irineo resul ts may occur for reaso ns that inclu de farhana ic varia nts, blood trans fusio ns, bone marro w trans plant ation , somat ic or tissu e-spe cific mosai cism, misla beled sampl es, or jenny eous repre senta tion of famil y relat ionsh ips. This test was devel oped and its perfo rmanc e bart cteri stics deter mined by [facility]. It has not been clear ed or appro catalina by the Food and Drug Admin istra tion. . Refer ences : Aj BR, Gustabo PC, Edwardl ey K[place], Fidelia l LW, Lincoln quan ; Ajay wilkes Assoc iatio n for the Study of Liver Disea ses. Diagn osis and manag ement of hemoc hroma tosis : 2010 pract ice guide line by the Marilyeri can Assoc iatio n for the Study of Liver Disea ses. Hepat ology . 2010;5 4(1): 328-4 3. doi: 10.10 02/ p.243 30. PMID: 60737 290; PMCID : PMC31 91396 . Chelsey G, Virgilio ot P, Lilia payne DW, Arnoldo r H, Mario scott O, Bk young S, Tori o I, Paresh brown M, Kerwin dominguez S. EMQN best pract ice guide lines for the molec ular farhana ic diagn osis of hered itary hemoc hroma tosis (HH). Eur J Hum Farhana . 2016 Jan;2 4(4): 479-9 5. doi: 10.10 /ej hg.20 1512 8. Epub 2014Apr 23. PMID: 05747 218; PMCID : PMC49 93243 . Not Available [facility] ([facility]) [address] [place] [address] [place], [address], 08/27/2024 09:10:45 08/17/20 24 08/27/2024 HERED ITARY HEMOC HROMA TOSIS reviewed by: LATISHA Whaley Techn ical Cavalier nent perfo rmed at [facility] Profruth olvera al Cavalier nent perfo rmed by: . Labor atory Cor[facility] ratio n [facility] [employer] ca [employer]i n[employer] Tre h Brooke lang, Ph.D. , [facility], [facility] ular Farhana ics [address] [facility] [place] [address] Perfo rmed at: - [facility] [address] [facility] , [place] [address] [facility] tor: Khalif Mcconnell [facility] , Phone : [phone] Not Available [facility] ([facility]) [address] [place] [address] [place], [address], 08/27/2024 09:10:45 Result Notes None recorded. Problems Name Problem SNOMED Code Status Onset Date Resolution Date Notes Provider Name and Address Organization Details Recorded Time Pain in female genitalia on intercourse 57045382 Active DONG Sanchez - [place] & [place] 2 17:15:20 Hydronephrosis 00856487 Active DONG Sanchez - [place] & 2 17:15:20 Allergic rhinitis 09856052 Active Zarina John null, [place] - [facility] - & 2 17:15:20 Urgent desire to urinate 36697835 Active Zarina [place] - [facility] - & 2 17:15:20 Increased blood pressure 68618759 Active Zarina [place] - [facility] - & 2 17:15:20 Headache disorder 898140818 Active Zarina John [place] - [facility] - & 2 17:15:20 Urethritis 94661579 Active Zar[place] - [facility] - & 2 17:15:20 Cyst of kidney 524872421 Active Zraina John [place] - [facility] - & 2 17:15:20 Frontal sinusitis 35118120 Active Zarina [place] - [facility] - & 2 17:15:20 Prolapse of urethra 92075623 Active Zarina [place] - [facility] - & 2 17:15:20 Tuberculosis screening Active Zarina [place] [facility] - & 2 17:15:20 Genetic finding detected 562090360 Active Zarina [place] - [facility] - & 2 17:15:20 Fever 809673955 Active Zar[place] - [facility] - & 2 17:15:20 Chronic maxillary sinusitis 78094111 Active Zar[place] [facility] - & 2 17:15:20 Chronic sphenoidal sinusitis 43366988 Active Zarina [place] - [facility] - & 2 17:15:20 Acute sinusitis 38297256 Active Zarina John [place] - [facility] - & 2 17:15:20 Genuine stress incontinence 32085970 Active Zarina cui, [place] - [facility] - [place] & [place] 2 17:15:20 Chronic ethmoidal sinusitis 80644858 Active Zarina Lopez null, [place] - [facility] - [place] & [place] 2 17:15:20 Cough 66489411 Active Zarina cui, DONG - [facility] - [place] & [place] 2 17:15:20 Problem Notes None recorded. Procedures Surgical History Date Name Laterality Status Provider Name and Address Organization Details Recorded Time 2023 Colonoscopy completed Sarah Olayinka UMANA - [facility] - [place] & [place] 4 16:09:46 2023 esophagogastroduodenoscopy completed Ally Bhagat DONG - [facility] - [place] & [place] 4 16:09:56 replacement of bilat eral knee joints completed Gucci Luis A UMANA - [facility] - [place] & [place] 2 07:10:59 perinasal sinusotomy completed Zachary payan Luis A [facility] - [facility] - [place] & [place] 2 07:11:11 Unlisted px femur/knee completed Tommy lawkevin UMANA - [facility] - [place] & [place] 2 07:11:23 functional endoscopi c sinus surgery, total completed Gucci Luis A [facility]MANA - [facility] - [place] & [place] 2 07:11:37 Total Hysterectomy completed Nikki corbin Luis A [facility] - [facility] - [place] & [place] 2 07:11:46 laparoscopy completed Gucci Luis A UMANA - [facility] - [place] & [place] 2 07:11:54 hysteroscopy completed Gucci Luis A [facility]MANA - [facility] - [place] & [place] 2 07:12:05 reconstruction of an terior cruciate ligament of knee joint completed Gucci Luis A UMANA - [facility] - [place] & [place] 2 07:12:16 oophorectomy completed Gucci Luis A UMANA - [facility] - [place] & [place] 2 07:12:30 Imaging Results None recorded. Procedure Notes None recorded. Medical Equipment None Reported. Allergies Allergen ID Allergen Name Allergen Category Reaction Reaction Severity Criticality Documentation Date Start Date Code Code System Note Provider Name and Address Organization Details Recorded Time 7005 aspirin medicatio n anaphylax is Not available Not available 06/25/2022 1191 RxNorm Zarina Lopez [facility], [place] - [place] - [place] & [place] 2 17:15:19 Medications Name Sig Start Date Stop Date Status Note LastModified by Organization Details LastModified Time amoxicillin 500 mg capsule active Not Available Not Available Not Available Miralax 17 gram/dose oral powder Take 17 g by oral route for 2 days. 2023 active Not Available Not Available Not Avai lable azithromycin 250 mg tablet TAKE 2 TABLETS (500 MG) BY ORAL ROUTE ONCE DAILY FOR 1 DAY THEN 1 TABLET (250 MG) BY ORAL ROUTE ONCE DAILY FOR 4 DAYS active Not Available Not Available No t Available benzonatate 200 mg capsule TAKE 1 CAPSULE 3 TIMES A DAY BY ORAL ROUTE NEEDED active Not Available Not Available No t Available triamcinolon e acetonide 0.1 % topical cream active Not Available Not Available Not Available butalbital-a cetaminophen -caffeine 50 mg-325 mg-40 mg tablet TAKE 1 TABLET BY MOUTH EVERY 6 HOURS NEEDED FOR HEADACHE active Not Available Not Available No t Available ondansetron 8 mg disintegrati ng tablet active Not Available Not Available No t Available oxycodone-ac etaminophen 5 mg-325 mg tablet active Not Available Not Available Not Available amitriptylin e 25 mg tablet active Not Available Not Available Not Available trazodone 100 mg tablet active Not Available Not Available Not Available pantoprazole 40 mg tablet,delay ed release Take 1 tablet every day by oral route for 30 days. active Not Available Not Available No t Available methylpredni solone 4 mg tablets in a dose pack active Not Available Not Available No t Available albuterol sulfate HFA 90 mcg/actuatio n aerosol inhaler INHALE 2 PUFFS EVERY 4 HOURS BY INHALATION ROUTE NEEDED. active Not Available Not Available No t Available lisinopril 40 mg tablet active Not Available Not Available Not Available ondansetron 4 mg disintegrati ng tablet DISSOLVE 1 TABLET ON TONGUE EVERY 6 HOURS NEEDED FOR NAUSEA active Not Available Not Available No t Available doxycycline hyclate 100 mg tablet active Not Available Not Available No t Available amoxicillin 875 mg-potassium clavulanate 125 mg tablet active Not Available Not Available Not Available Dulcolax (bisacodyl) 5 mg tablet,delay ed release Take 2 tablets by oral route for 1 day. 2023 active Not Available Not Available Not Avai lable ciprofloxaci n 0.3 %-dexamethas one 0.1 % ear drops,suspen pascual active Not Available Not Available Not Available nitrofuranto in monohydrate/ macrocrystal s 100 mg capsule active Not Available Not Available Not Available budesonide-f ormoterol HFA 160 mcg-4.5 mcg/actuatio n aerosol inhaler active Not Available Not Available Not Available Myrbetriq 50 mg tablet,exten ded release 1 {tablet} by oral route. active Not Available Not Available No t Available Ubrelvy 100 mg tablet 100 MG BY MOUTH ONCE NEEDED FOR HEADACHE OR AURA; TAKE 1 TABLET / 100 MG AT ONSET OF AURA/HEADAC HE. MAY REPEAT AFTER 2 HOURS IF SYMPTOMS active Not Available Not Available No t Available Vitals Date Recorded Body height Body mass index (BMI) Body weight Body temperature Oxygen saturation Oxygen saturation in Arterial blood by Pulse oximetry Heart rate Provider Name and Address Organization Details Last Updated DateTime 4 162.56 cm 39.7 kg/m2 743185. 84 g 97.6 [degF] 98 % 98 % 77 /min Sarah Olayinka [facility] 4 10:54:47 Date Recorded Body height Body mass index (BMI) Body weight Body temperature Oxygen saturation Oxygen saturation in Arterial blood by Pulse oximetry Heart rate Provider Name and Address Organization Details Last Updated DateTime 4 162.56 cm 42.7 kg/m2 721337. 5 g 97.8 [degF] 98 % 98 % 97 /min Sarah Olayinka [facility] & [place] 4 09:33:24 Social History None recorded. Functional Status Question Answer Note LastModified by Organization D etails LastModified Time What is your level of alcohol consumption? None Information not available 07/14/2022 Mental Status None recorded. Family History Relationship Description Onset Age of this Age Resolved Age Notes LastModified by Organization Details LastModified Time Father Family history unknown Not available 2023 09:27:22 Father Disorder of endocrine system pt. added direct ly (05/06) API-13 Not available 05/06/2024 12:56:49 Father Hypertensive disorder pt. added direct ly (05/06) API-13 Not available 05/06/2024 12:57:23 Mother Family history unknown [email or web address] Not available 2023 09:27:22 Mother Disorder of endocrine system pt. added direct ly (05/06) API-13 Not available 05/06/2024 12:56:49 Mother Hypertensive disorder pt. added direct ly (05/06) API-13 Not available 05/06/2024 12:57:23 Mother Osteoporosis pt. added direct ly (05/06) API-13 Not available 05/06/2024 12:58:17 Brother Family history unknown [email or web address] Not available 2023 09:27:22 Maternal Grandmother Disorder of endocrine system pt. added direct ly (05/06) API-13 Not available 05/06/2024 12:56:49 Maternal Grandmother Hypertensive disorder pt. added direct ly (05/06) API-13 Not available 05/06/2024 12:57:23 Maternal Grandfather Disorder of endocrine system pt. added direct ly (05/06) API-13 Not available 05/06/2024 12:56:49 Maternal Grandfather Hypertensive disorder pt. added direct ly (05/06) API-13 Not available 05/06/2024 12:57:23 Maternal Grandfather Myocardial infarction pt. added direct ly (05/06) API-13 Not available 05/06/2024 12:57:41 Paternal Grandmother Disorder of endocrine system pt. added direct ly (05/06) API-13 Not available 05/06/2024 12:56:49 Paternal Grandmother Hypertensive disorder pt. added direct ly (05/06) API-13 Not available 05/06/2024 12:57:23 Paternal Grandmother Myocardial infarction pt. added direct ly (05/06) API-13 Not available 05/06/2024 12:57:41 Paternal Grandmother Kidney disease pt. added direct ly (05/06) API-13 Not available 05/06/2024 12:59:03 Paternal Grandfather Disorder of endocrine system pt. added direct ly (05/06) API-13 Not available 05/06/2024 12:56:49 Paternal Grandfather Hypertensive disorder pt. added direct ly (05/06) API-13 Not available 05/06/2024 12:57:23 Paternal Aunt Headache pt. added direct ly (05/06) API-13 Not available 05/06/2024 12:57:07 Paternal Uncle Heart disease pt. added direct ly (05/06) API-13 Not available 05/06/2024 12:58:03 Medical History No medical history recorded. Gynecological HistoryNo gynecological history recorded. Obstetrics History GPAL:G 0 P 0 0 0 0 Immunizations Vaccine Type Date Status Note Provider Nam e and Address Organization Details Recorded Time TST-PPD intradermal 05/21/2015 completed DONG Sanchez - [facility] - [place] & [place] 06/25/2022 17:15:20 Past Encounters Encounter ID Performer Location Encounter Start Date Encounter Closed Date Diagnosis/Indication Diagnosis SNOMED-CT Code Diagnosis ICD10 Code Diagnosis Note [id number] LAUREN Inman [facility] [address] [place] [address] DONG KEITH [id number] 05/09/2024 10:32:52 05/09/2024 15:31:36 Family history of cancer of colon 884971963 Z80.0 patient reports family history of colon cancer in her great grandmothe r. 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 Last colonoscop y was in 2018, I do not have these records. Denies red flag symptoms at this time. We will plan for colonoscop y for screening purposes at this time. Vomiting 796509825 R11.1 0 Patient reports intermitte nt episodes of vomiting, states this is projectile when it occurs. She underwent a gallbladde r ultrasound on 12/27/2023 that was normal, did show hepatic steatosis. Recommend EGD for further evaluation . Diarrhea 32817668 R19.7 Reports symptoms are longstandi ng, currently controlled with probiotic usage. Steatotic liver disease 042008254 K76.0 Noted on RUQ ultrasound from 12/27/2023 . Plan for comprehens irineo liver evaluation after EGD and colonoscop y. [id number] LAUREN Inman [facility] [address] [place] [address] DR GALEANO DONG PONCE [id number] 08/17/2024 09:26:23 08/17/2024 10:53:51 Gastroesophageal reflux disease without esophagitis 096665184 K21.9 patient reports ongoing GERD symptoms, EGD from 08/01/2024 ultimately normal. Recommend starting PPI therapy. Vomiting 914043056 R11.1 0 History of gallbladde r ultrasound on 12/27/2023 that was normal. EGD from 08/01/2024 was without significan t findings. Recommend HIDA scan for further evaluation Steatotic liver disease 416153295 K76.0 Noted on RUQ ultrasound from 12/27/2023 . Plan for comprehens irineo liver evaluation to rule out underlying metabolic or autoimmune liver process. Recommend low-fat diet, exercise, 2 cups of coffee per day. Plan for repeat liver ultrasound December 2024 Family his tory of cancer of colon 976100002 Z80.0 patient reports family history of colon cancer in her great grandmothe r. 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 colonoscop y from 08/01/2024 was normal. Recommend 5 year follow-up given family history. Health Concerns Section Related Observation LastModified by Organization Detai ls LastModified Time None Recorded Concern Status LastModified by Organization Details LastModified Time None Recorded Advance Directives Directive None Recorded Payers Insurance Date Sequence Insurance Name Policy Number Policy Baez Covered Member ID Baez Member ID Guarantor Name 11/04/2024 1 [employer] [id number] Kala Porter [id number] Kala Porter Notes Date Note Type Note Provider Name and Address Organization Details Recorded Time 05/09/2024 text/html this is a 43-year-old female with a PMH significant for hypertension and asthma who was referred to our clinic for colonoscopy. Patient has a family history of colon cancer in her great grandmother. She states she underwent genetic testing at that showed she had a colon cancer mutation. She states that she did have a colonoscopy in 2018 which I do not have records of. She does report some other symptoms today. She reports intermittent episodes of. States that when this occurs it is projectile. She underwent right upper quadrant ultrasound on 12/27/2023 that showed a normal gallbladder, hepatic steatosis. She also complains of longstanding history of diarrhea, currently improved with probiotic usage. She denies melena or hematochezia LAUREN Inman [address], [address], [place], [address], [facility] & [place] 05/16/2024 13:48:59 08/17/2024 text/html This is a 43-year-old female who is seen today in follow-up. She is s/p EGD and colonoscopy on 08/01/2024, EGD was notable for small benign appearing polyps in the stomach, colonoscopy was normal. Five year follow-up colonoscopy recommended given family history. Patient states that she continues to have symptoms of GERD and intermittent vomiting. She has a history of normal gallbladder ultrasound from 12/27/2023. She is currently taking Pepcid when needed. She states her vomiting occurs intermittently and typically without warning. She states that she will wake up in the night and vomit occasionally. She states that her diarrhea symptoms are currently well controlled. LAUREN Inman [address], [address], [place], [address], [facility] & [place] 08/17/2024 10:56:47 OBGyn Episode No OBEpisode recorded.
--- NOTE | 2025-03-26 07:42 | HMH.EDGENADL ---
Discharge Plan Disposition Patient Disposition: Home, Self-Care Condition: Good Prescriptions Prescriptions: New hydrochlorothiazide 25 mg tablet 25 mg PO DAILY 14 Days Qty: 14 0RF naproxen 500 mg tablet 500 mg PO DAILY 14 Days Qty: 14 0RF Discontinued hydrochlorothiazide 12.5 mg capsule 12.5 mg PO DAILY lisinopril 10 mg tablet 20 mg PO DAILY No Action Ubrelvy 100 mg tablet 100 mg PO ONCE PRN (Reason: headache or aura) Qty: 10 5RF Rx Instructions: Take 1 tablet / 100 mg at onset of aura/headache. May repeat after 2 hours if symptoms persist. Max dose 200 mg in 24 hours. atogepant 60 mg tablet 60 mg PO DAILY Qty: 30 5RF lnggbaumle-osimzqeychlax-zhbm 50-325-40 mg tablet 1 tab PO PRN Reyvow 100 mg tablet 100 mg PO ONCE PRN (Reason: migraine headache) Qty: 8 2RF Rx Instructions: as needed for severe to incapacitating migraine amitriptyline 25 mg tablet 25 mg PO HS Qty: 30 2RF ondansetron 4 MG tablet,disintegrating 4 mg PO TIDP PRN (Reason: Nausea And Vomiting) 3 Days Qty: 12 0RF Referrals Follow up/Referrals: Laila Zeng [Primary Care Provider, Medical] - See instructions Activity Restrictions/Add. Instructions Additional Instructions/Restrictions: As we discussed, your respiratory panel did not show evidence of infection. I believe it is likely you are having a reaction to either your lisinopril or the allopurinol that you took yesterday. I recommend you discontinue the lisinopril, I have prescribed a higher dose of the hydrochlorothiazide that you are previously prescribed. Please continue to monitor your blood pressure and follow-up with your primary care doctor to discuss further treatment of your high blood pressure. Your ultrasound that I performed and clinical exam to me are most consistent with Achilles tendinitis in your right leg. I prescribed a course of naproxen which you mention you have previously tolerated. This would treat both Achilles tendinitis and gout if the symptoms are attributable to gout, although I believe less likely. Please return with any new or worsening symptoms. Clinical Impressions Clinical Impression: Cough in adult, Achilles tendinitis of right lower extremity Instructions Patient Instructions: Cough Print Language Print Language: Nepali Discharge ED Provider: Rebekah,Jomar General Adult HPI General Chief complaint: Cough Stated complaint: took new medication, cough throat swelling Time Seen by Provider: 03/26/25 07:42 History of Present Illness HPI narrative: Patient presents with feeling of throat swelling which was gradual in onset starting at approximately midnight. Symptoms are stable in course. Patient expresses concern that symptoms may be attributable to one-time dose of allopurinol which was taken for clinical suspicion of gout by patient. This medication belongs to her and she has not taken it before. Patient does take metformin as well as calcium channel judie, which was later disclosed that this was initiated within the past 2 weeks. Patient denies any fevers or chills. Denies any rash. No previous therapies for treatment of throat symptoms. Please note that above description of symptoms, in this electronic medical record under categorization of recalled from ER triage doctor by RN are reflective of an initial nursing assessment, however, is not reflective of my full history and physical exam that was personally taken and clarified. Consequentially, this preceding description of symptoms, which may include the patient's categorized chief complaint in the EMR, do not reflect my personal clinical impression, and the ultimate description of history of present illness and patient stated complaints should be deferred to this section of the note. Unless stated otherwise or congruent with this section of the note, additional signs, symptoms, or incongruence should be interpreted as inaccurate with my clinical impression. Related Data Home Medications ?Medication ?Instructions ?Recorded ?Confirmed [id number]-ibgskpxyhvkjp-[id number] 1 tab PO PRN 09/29/21 09/29/21 50 mg-325 mg-40 mg tablet Previous Rx's ?Medication ?Instructions ?Recorded ondansetron 4 mg disintegrating 4 mg PO TIDP PRN Nausea And 05/23/21 tablet Vomiting 3 days #12 tabs ubrogepant 100 mg tablet (Ubrelvy) 100 mg PO ONCE PRN headache or 08/04/21 aura #10 tabs atogepant 60 mg tablet 60 mg PO DAILY chronic intractable 09/01/21 #30 tabs amitriptyline 25 mg tablet 25 mg PO HS #30 tabs 09/29/21 lasmiditan 100 mg tablet (Reyvow) 100 mg PO ONCE PRN migraine 09/29/21 headache #8 tabs hydrochlorothiazide 25 mg tablet 25 mg PO DAILY 2 weeks #14 tabs 03/26/25 naproxen 500 mg tablet 500 mg PO DAILY 2 weeks #14 tabs 03/26/25 Allergies Allergy/AdvReac Type Severity Reaction Status Date / Time propranolol Allergy Intermediate tongue Verified 09/29/21 08:59 swelling aspirin (ASPIRIN) Allergy Mild Verified 09/29/21 08:59 [facility] Disclaimer: The information contained in this section may have been updated after the patient was seen, as this information can be updated by other users. Social History Smoking Status: Never smoker alcohol intake: never substance use type: denies use current occupational status: employed Travel in the last 8 weeks?: None household members: spouse housing: house current occupational exposures/hazards: No Have you lived/traveled outside US in past 30 days?: No Contact w/someone who lives/traveled outside US past 30 days?: No Exposure to someone with infectious disease in past 14 days?: No Do you have a fever (greater than 100.4 F or 38 C)?: No Have you tested positive for COVID-19?: No Exposed to someone with COVID-19 in past 14 days?: No Do you have a sore throat?: No Do you have a cough?: Yes Do you have any weakness?: No Do you have any diarrhea?: No Are you experiencing any unusual bleeding?: No Do you have any muscle aches/pain?: No Do you have any abdominal pain?: No Are you experiencing loss of taste or smell?: No Other Medical History Have you received the Flu Vaccine for this season: Yes Have you received the Pneumonia Vaccine: Yes ROS Obtained: Yes other As per HPI Physical Exam General General appearance: alert and in no apparent distress Head Head exam: atraumatic and normocephalic Eye Eye exam: Present normal appearance Neck Neck exam: Present normal inspection Chest Chest inspection: Present normal inspection and symmetric chest wall rise Respiratory Respiratory exam: Present normal lung sounds bilaterally; Absent respiratory distress Cardiovascular Cardiovascular exam: Present regular rate and normal rhythm Abdominal Exam Abdominal exam: Present soft Neurological Exam Neurological exam: Present alert and oriented X3 Psychiatric Psychiatric exam: Present normal affect and normal mood Skin Skin exam: Present warm and dry Other Other exam information: Frequent nonproductive cough, no dysphonia, no stridor, no lip or tongue swelling. No clinical evidence of angioedema. Oropharynx with very mild erythema. No urticaria Medical Decision Making Medical Records Medical records reviewed: Yes I reviewed the patient's medical records. Screening: Per USPSTF and CDC recommendations, given the prevalence of disease in our region, it is our hospital?s policy to screen for HIV and viral Hepatitis for all patients aged 18 and over and those with ongoing risk factors. Patrice Inquiry Pt receiving controlled substance: No Vital Signs: 03/26/25 07:38 03/26/25 07:39 03/26/25 07:42 Temperature 98.2 F Temperature Source Oral Pulse Rate 94 H 83 Pulse Rate [Right Radial] 81 Respiratory Rate 17 Blood Pressure 174/103 H 172/110 H Blood Pressure [Left Arm] 172/110 H Blood Pressure Mean 126 Blood Pressure Mean [Left Arm] 130 Blood Pressure Source Blood Pressure Source [Left Arm] Automatic Cuff Blood Pressure Position Blood Pressure Position [Left Arm] Supine 02 Sat by Pulse Oximetry 97 97 Oxygen Delivery Method Room Air 03/26/25 08:00 03/26/25 08:30 03/26/25 09:00 Temperature Temperature Source Pulse Rate 71 73 66 Pulse Rate [Right Radial] Respiratory Rate 18 18 Blood Pressure 169/99 H 155/101 H 158/95 H Blood Pressure [Left Arm] Blood Pressure Mean 131 135 Blood Pressure Mean [Left Arm] Blood Pressure Source Blood Pressure Source [Left Arm] Blood Pressure Position Blood Pressure Position [Left Arm] 02 Sat by Pulse Oximetry 97 97 96 Oxygen Delivery Method 03/26/25 09:30 03/26/25 10:00 03/26/25 10:24 Temperature 98.1 F Temperature Source Oral Pulse Rate 62 67 68 Pulse Rate [Right Radial] Respiratory Rate 18 18 15 Blood Pressure 154/100 H 146/98 H 146/98 H Blood Pressure [Left Arm] Blood Pressure Mean 126 117 Blood Pressure Mean [Left Arm] Blood Pressure Source Automatic Cuff Blood Pressure Source [Left Arm] Blood Pressure Position Supine Blood Pressure Position [Left Arm] 02 Sat by Pulse Oximetry 95 95 Oxygen Delivery Method Room Air Lab Data Lab Results 03/26/25 08:24: Chlamy pneumoniae PCR Not detected, Adenovirus (PCR) Not detected, B. pertussis DNA (PCR) Not detected, Coronavirus OC43 (PCR) Not detected, Coronavirus HKU1 (PCR) Not detected, Coronavirus 229E (PCR) Not detected, SARS-CoV-2 (PCR) Not detected, Coronavirus NL63 (PCR) Not detected, Human Metapneumovir PCR Not detected, Influenza A (H1) PCR Not detected, Influ A (H1N1/09) PCR Not detected, Influenza A (H3) PCR Not detected, Influenza Type A (PCR) Not detected, Influenza Type B (PCR) Not detected, M. pneumoniae (PCR) Not detected, Parainfluenza 1 (PCR) Not detected, Parainfluenza 2 (PCR) Not detected, Parainfluenza 3 (PCR) Not detected, Parainfluenza 4 (PCR) Not detected, RSV (PCR) Not detected, Entero/Rhino (PCR) Not detected Orders (Tests/Meds): ED MEDICATIONS Discontinued Medications Generic Name Dose Route Start Last Admin Trade Name Freq PRN Reason Stop Dose Admin Acetaminophen 1,000 mg 03/26/25 08:40 03/26/25 08:55 Acetaminophen 500mg Tab PO 03/26/25 08:41 1,000 mg ONCE ONE Administration Diphenhydramine HCl 25 mg 03/26/25 08:10 03/26/25 08:21 Diphenhydramine 25mg Capsule PO 03/26/25 08:11 25 mg ONCE ONE Administration Famotidine 20 mg 03/26/25 08:10 03/26/25 08:21 Famotidine 20mg Tablet PO 03/26/25 08:11 20 mg ONCE ONE Administration ORDERS Category Date Time Status Full Resp Panel w/COVID ([facility]) Routine Lab 03/26/25 08:24 Completed Medical Decision Narrative: Patient with history and exam per above presenting for evaluation of cough, sensation of throat swelling. Diagnoses considered include calcium channel judie side effect, allergic reaction to allopurinol, in regard to patient's other complaint of right heel pain, no clinical evidence of abscess. Pain is located at the insertion of right Achilles tendon. Pain is exacerbated by dorsiflexion of right foot. No palpable effusion. I suspect ankle pain is attributable to Achilles tendinitis rather than gout ED workup and treatment included: Comprehensive respiratory panel Labs were independently interpreted by me, significant for respiratory panel negative. In the absence of evidence of acute infectious precipitant, I suspect etiology is secondary to calcium channel judie. Patient exhibits no evidence of angioedema. She reports some mild improvement of symptoms upon repeat evaluation after administration of diphenhydramine and famotidine. I considered and discussed one-time dose of dexamethasone however patient has experienced daily hyperglycemia at home, recent A1c of approximately 7 but after shared decision making we will defer administration of dexamethasone. Patient will follow-up with primary care provider however I advised discontinuation of calcium channel judie and prescribed 25 mg hydrochlorothiazide for hypertension to bridge to outpatient follow-up. Patient has previously tolerated hydrochlorothiazide in the past dosage of 12.5 mg in conjunction with other antihypertensive. For ankle pain I prescribed a course of naproxen. I discussed my clinical impression with patient and answered all questions. At this time, the evidence for any other entities in the differential is insufficient to warrant any further testing or ED observation. This was explained to the patient. The patient was advised that persistent or worsening symptoms require further evaluation. Critical Care Critical Care Time Critical Care Time: No
--- NOTE | 2025-03-26 08:00 | PC.NURSE ---
DR WAN AT BEDSIDE
[2025-03-26] MEDS: FAMOTIDINE 20MG TABLET 20 MG PO (08:21)
[2025-03-26] MEDS: diphenhydrAMINE 25MG CAPSULE 25 MG PO (08:21)
[2025-03-26 08:27] LABS: Adenovirus,PCR Not Detected (NotDetected); Bordetella Pertussis Not Detected (NotDetected); Chlamydophila Pneumoniae, PCR Not Detected (NotDetected); Coronavirus 19, PCR Not Detected (NotDetected); Coronavirus 229E Not Detected (NotDetected); Coronavirus NL63 Not Detected (NotDetected); Coronavirus OC43 Not Detected (NotDetected); Coronovirus HKU1,PCR Not Detected (NotDetected); Human Metapneumovirus Not Detected (NotDetected); Influenza A, PCR Not Detected (NotDetected); Influenza AH1, 2009 Not Detected (NotDetected); Influenza AH1, PCR Not Detected (NotDetected); Influenza AH3,PCR Not Detected (NotDetected); Influenza B, PCR Not Detected (NotDetected); Mycoplasma Pneumoniae, PCR Not Detected (NotDetected); Parainfluenza 1, PCR Not Detected (NotDetected); Parainfluenza 2, PCR Not Detected (NotDetected); Parainfluenza 3, PCR Not Detected (NotDetected); Parainfluenza 4, PCR Not Detected (NotDetected); Respiratory Syncytial Virus Not Detected (NotDetected); Rhinovirus/Enterovirus Not Detected (NotDetected)
--- NOTE | 2025-03-26 08:49 | PC.NURSE ---
FSBS was 168 at this time.
[2025-03-26] MEDS: ACETAMINOPHEN 500MG TAB 1000 MG PO (08:55)
== END 2025-03-26 10:25 | disposition home or self-care (01) ==
PROVIDERS: Emergency Provider Emergency Medicine; PCP Family Medicine
DX: M76.61 Achilles tendinitis, right leg (principal); R05.9 Cough, unspecified
CPT/HCPCS: 0223U; 87633; 99283

== ENCOUNTER 2025-07-22 15:19 | Outpatient (CLI) | payer BC, SELFPAY ==
--- OUTSIDE RECORDS SUMMARY | 2025-07-22 15:21 | XMS_ITS | Clinical Summary ---
Author Organization [employer] ([place], [place], [place], [place]) Address [address] [place] [address] Care Team Providers Care Survey Worker Name Role Phone Laila Zeng MD Primary Care Provider [phone] Allergies Active Allergy Reactions Criticality Noted Date [...] drink = 0.6 oz pur e alcohol) Family and Community Support Answer Darnell e Recorded Help with Day to Day Activities Not on file 11/03/2023 Feeling Lonely or Isolated Not on file 11/03 Educational Attainment Answer Date Billy rded Speak language other than Mexican at home Not on file 11/03/2023 Want help with school or training Not on file 11/03/2023 Substance Use Answer Date Recorded Used [...] 2002 Breast Cancer Screening 2021 COVID-19 VACCINE (3 - 2024-2 6 season) 2025 01/18/2022, 01/22/2021, 01/22/2021 Influenza Vaccine (#1) 2025 , 07/24/2021 Tobacco Cessation Counseling and Screening (12+) 08/19/2025 08/19/2024 Lipid Panel 11/12/2025 11/12/2022 DTAP/TDAP/TD VACCINES (3 - T d or Tdap) 04/06/2029 04/06/2019, 08/05/1997 Pneumococcal Vaccine: 0-49 Years Aged Out 12/23/2023 No longer eligible b ased on patient's age to complete this topic Medical Devices Implanted Type Area Azure Principal Solution Specialist Device Identifier Shelf Expiration Date Model / Serial / Lot Imp Stravix 2x4cm [id number] - [id number] Implanted:Qty : 1 on 11/12/2022 by Norma Wiley MD at [facility] IMPLANTS N/A: Pelvis [employer] 05/10/2025 [id number] / [id number] Dermis Ralls 4x7cm [id number] - [id number] Implanted:Qty : 1 on 11/12/2022 by Norma Wiley MD at [facility] IMPLANTS N/A: Pelvis [employer]OPLAST A/S:COLOPLAST 06/16/2025 [id number] / [id number] / [id number] Procedures Procedure Name Priority Date/Time Associated Diagnosis Comments LIPID PANEL Routine 11/12/2022 7:17 AM EST from Last 3 Months or Most Recently Relevant to Health Maintenance Results * (ABNORMAL) Lipid panel (11/12/2022 7:17 AM EST) Triglycerides 270(H) 0 - 249 mg/dL 11/12/2022 7:59 AM [facility] Cholesterol 188 0 - 199 mg/dL 11/12/2022 7:59 AM [facility] Comment: 200 to 239 mg/dL = Moderate (borderline) >239 mg/dL = High HDL Cholesterol 29(L) >=40 mg/dL 11/12/2022 7:59 AM [facility] Comment: >=60 mg/dL = Desirable <40 mg/dL = Increased Risk All other components are listed individually or are calculations VLDL Cholesterol 54(H) 5 - 40 mg/dL 11/12/2022 7:59 AM [facility] Cholesterol/HDL ratio 6.5(H) 0.0 - 3.2 11/12/2022 7:59 AM [facility] LDl/HDL Ratio 4 0 - 4 11/12/2022 7:59 AM [facility] LDL Cholesterol, Calculated 105(H) 0 - 99 mg/dL 11/12/2022 7:59 AM [facility] RISK COMP 6 11/12/2022 7:59 AM [facility] Blood Venipuncture / Unknown 11/12/2022 7:17 AM EST 11/12/2022 7:27 AM EST us Norma Wiley MD LAB BLOOD ORDERABLES Final Re sult [facility] [address] [place] [address], [facility] [phone] from Last 3 Months or Most Recently Relevant to Health Maintenance Insurance BLUE CROSS/BLUE SHIELD Advance Directives For more information, please contact: [phone] * Full Code (Latest Code Status on File) Date Activated Date Inactivated Comments 11/12/2022 6:27 AM 11/12/2022 2:05 PM * Full Code Date Activated Date Inactivated Comments 11/12/2022 5:21 AM 11/12/2022 6:27 AM Care Teams Survey Worker Relationship Specialty Start Date End Date Laila Zeng MD [address] [facility] [address] [place] [address] PCP - General Family Medicine 05/15/24
--- OUTSIDE RECORDS SUMMARY | 2025-07-22 15:21 | XMS_ITS | Clinical Summary ---
Author Organization [facility] Address [address] [place] [address] Care Team Providers Care Crime Scene Technician Name Role Phone Laila Zeng MD Primary [...] SARS-CoV-2 Vaccination 01/22/2021 Hep B, Adolescent/High Risk Infant 08/05/1997 Influenza, injectable, quadrivalent 07/13/2019 Influenza, recombinant, quad rivalent, injectable, preservative free 08/10/2022,07/24/2021 PPD Skin Test (TB Skin Test) 05/21/2015 Pneumococcal Polysaccharide PPV23 12/23/2023 TD (adult), 2 Lf tetanus tox oid, preservative free, adsorbed 08/05/1997 Tdap 04/06/2019 Family History Medical History Relation Name Comments Diabetes Cousin Diabetes Father Miko Porter Hypertension Father Miko Porter Cardiac disorder Maternal Grandfather Carla Choudhury Diabetes Maternal Grandfather Carla Macey Skin cancer Maternal Grandfather Carla Choudhury FH: ski n cancer Breast cancer Maternal Grandmother Erin Hugoer FH: br east cancer Cancer Maternal Grandmother Erin Macey Diabetes Maternal Grandmother Erin Macey Hypertension Maternal Grandmother Erin Macey Cardiac disorder Maternal Great-Grandmother Cancer Mother Shirlene Porter Hypertension Mother Shirlene Porter Cancer Mother's Sister Sandra Choudhury [place] Cardiac disorder Other 1 Diabetes Other 2 [...] Cousin Father Miko Porter Maternal Grandfather Carla Macey Maternal Grandmother Erin Macey Maternal Great-Grandmother Mother Shirlene Porter Mother's Sister Sandra Choudhury [place] Other 1 Other 2 Other 3 Other [...] 10/09/2024 8:55 AM EST Plan of Treatment Health Maintenance Due Date Last Done Comments [facility]-HIV Screening 1981 [facility]-Hepatitis C Screening 1981 [facility]-/Child/Adol SDOH Screenings 1981 [facility]-Varicella Vaccines (1 of 2 - 13+ 2-dose series) 1994 [facility]-Hepatitis B Vaccines (2 of 3 - 3-dose series) 09/02/1997 08/05/1997 [facility]- SDOH Screenings 1999 [facility]-Adult SDOH Screenings 1999 [facility]-Pap Smear 2002 HPV Vaccines (1 - 3-dose SCD M series) 2008 [facility]-Cervical Cancer Screening 2011 [facility]-HPV/Cotest 2011 [id number] Vaccine (3 - 2024- season) 2025 01/18/2022, 01/22/2021 [facility]-Influenza Vaccine (#1) 06/17/202508/10, 07/24/2021, 07/13/2019 [facility]-Depression Screening 10/09/2025 024, 10/09/2024 [...] complete this topic Insurance ANTHEM Care Teams Crime Scene Technician Relationship Specialty Start Date End Date Laila Zeng MD [address] [place] [address] [address] [place] [address] PCP - General 10/09/24
--- OUTSIDE RECORDS SUMMARY | 2025-07-22 15:21 | XMS_ITS | Referral Summary ---
Author Organization [employer] ([place], [place], [place], [place]) Address [address] [place] [address] Care Team Providers Care Scuba Diving Instructor Name Role Phone Laila Zeng MD Primary Care Provider [phone] Allergies Active Allergy Reactions Criticality Noted Date [...] e alcohol) Family and Community Support Answer Darnlel e Recorded Help with Day to Day Activities Not on file 11/03/2023 Feeling Lonely or Isolated Not on file 11/03 Educational Attainment Answer Date Billy rded Speak language other than Kosovan at home Not on file 11/03/2023 Want [...] on file Medical Devices Implanted Type Area Pipe Organ Builder Device Identifier Shelf Expiration Date Model / Serial / Lot Imp Stravix 2x4cm [id number] - [id number] Implanted:Qty : 1 on 11/12/2022 by Norma Wiley MD at [facility] IMPLANTS N/A: Pelvis [employer] 05/10/2025 [id number] / [id number] Dermis [place] 4x7cm [id number] - [id number] Implanted:Qty : 1 on 11/12/2022 by Norma Wiley MD at [facility] IMPLANTS N/A: Pelvis COLOPLAST A/S:COLOPLAST 06/16/2025 [id number] / [id number] / [id number] Procedures Procedure Name Priority Date/Time Associated Diagnosis Comments LIPID PANEL Routine 11/12/2022 7:17 AM EST from Last 3 Months or Most Recently Relevant to Health Maintenance Results * (ABNORMAL) Lipid panel (11/12/2022 7:17 AM EST) Triglycerides 270(H) 0 - 249 mg/dL 11/12/2022 7:59 AM EST [facility] Cholesterol 188 0 - 199 mg/dL 11/12/2022 7:59 AM [facility] Comment: 200 to 239 mg/dL = Moderate (borderline) >239 mg/dL = High HDL Cholesterol 29(L) >=40 mg/dL 11/12/2022 7:59 AM [facility] Comment: >=60 mg/dL = Desirable <40 mg/dL = Increased Risk All other components are listed individually or are calculations VLDL Cholesterol 54(H) 5 - 40 mg/dL 11/12/2022 7:59 AM [facility] Cholesterol/HDL ratio 6.5(H) 0.0 - 3.2 11/12/2022 7:59 AM [facility] LDl/HDL Ratio 4 0 - 4 11/12/2022 7:59 AM [facility] LDL Cholesterol, Calculated 105(H) 0 - 99 mg/dL 11/12/2022 7:59 AM [facility] RISK COMP 6 11/12/2022 7:59 AM [facility] Blood Venipuncture / Unknown 11/12/2022 7:17 AM EST 11/12/2022 7:27 AM EST Norma Wiley MD LAB BLOOD ORDERABLES Final Re sult [facility] [address] [phone] from Last 3 Months or Most Recently Relevant to Health Maintenance Insurance BLUE CROSS/BLUE SHIELD Advance Directives For more information, please contact: [phone] * Full Code (Latest Code Status on File) Date Activated Date Inactivated Comments 11/12/2022 6:27 AM 11/12/2022 2:05 PM * Full Code Date Activated Date Inactivated Comments 11/12/2022 5:21 AM 11/12/2022 6:27 AM Care Teams Scuba Diving Instructor Relationship Specialty Start Date End Date Laila Zeng MD [address] [facility] [address] [place] [address] PCP - General Family Medicine 05/15/24
--- OUTSIDE RECORDS SUMMARY | 2025-07-22 15:21 | XMS_ITS | Clinical Summary ---
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 90 tablet 016 Active albuterol sulfate HFA 108 (90 Base) MCG/ACT inhaler albuterol sulfate HFA 90 mcg/actuation aerosol inhaler INHALE 2 PUFFS EVERY 4 HOURS BY INHALATION ROUTE NEEDED. Active hydroCHLOROthiazi de (MICROZIDE) 12.5 MG capsule hydrochlorothiazide 12.5 mg capsule Active ubrogepant 100 MG tablet Take 100 mg by mouth As Needed. Active Atogepant (Qulipta) 60 MG tablet Take 60 mg by mouth Daily. Active butalbital-acetam inophen-caffeine (FIORICET, ESGIC) 50-325-40 MG per tabletIndications :Other migraine without status migrainosus, not intractable Take 1 tablet by mouth Every 6 (Six) Hours As Needed for Headache. 12 tablet Active ondansetron ODT (ZOFRAN-ODT) [address] 1 tablet on the tongue Every 6 (Six) Hours As Needed for Nausea. 20 tablet 021 Active Active Problems Problem Noted Date Diagnosed Date Cerebral aneurysm, nonruptured 09/14/2021 Overview (09/14/2021): Added automatically from request for surgery [id number] Family History Medical History Relation Name Comments Allergic rhinitis Father Relation Name Status Comments Father Alive Mother Alive Social History Tobacco Use Types Packs/Day Years Used Date Smoking Tobacco: Never Smokeless Tobacco: Never Alcohol Use Standard Drinks/Week Comments Never 0 (1 standard drink = 0.6 oz pur e alcohol) Abuse Screen Answer Date Recorded Unsafe at Home or Work/School Not on file Feels Threatened by Someone? Not on file 06/2023 Does Anyone Keep You from Co ntacting Others or Doint Things Outside the Home? Not on file 07/25/2023 Physical Sign of Abuse Present Not on file 1 Housing Stability Answer Date Recorded Current Living Arrangements Not on file 06/2023 Potentially Unsafe Housing Conditions Not on lexie e 07/25/2023 Family and Community Support Answer Darnell e Recorded Help with Day-to-Day Activities Not on file 07/25/2023 Lonely or Isolated Not on file 07/25/2023 Employment Answer Date Recorded Do you want help finding or keeping work or a alejandro b? Not on file 07/25/2023 Disabilities Answer Date Recorded Concentrating, Remembering, or Making Decisions Difficulty Not on file 07/25/2023 Doing Errands Independently Difficulty Not on fi le 07/25/2023 Education Answer Date Recorded Help with school or training? Not on file Preferred Language Not on file 07/25/2023 Comments No Sex and Gender Information Value Date Recorded Sex Assigned at Not on file Legal Sex Female 11:47 AM EDT Gender Identity Not on file Sexual Orientation Not on file Last Filed Vital Signs Vital Sign Reading Time Taken Comments Blood Pressure 155/97 09/21/2021 2:24 PM EST Pulse 93 09/21/2021 2:24 PM EST Temperature 36.8 C (98.2 F) 09/21/2021 2:24 PM EST Respiratory Rate 16 09/21/2021 2:24 PM EST Oxygen Saturation 97% 09/21/2021 2:24 PM EST Inhaled Oxygen Concentration - - Weight 112 kg (246 lb) 09/21/2021 2:24 PM EST Height 167.6 cm (5' 6 ) 09/21/2021 2:24 PM EST Body Mass Index 39.71 09/21/2021 2:24 PM EST Plan of Treatment Health Maintenance Due Date Last Done Comments Annual Gynecologic Pelvic an d Breast Exam 1981 ANNUAL PHYSICAL 09/14/2021 HEPATITIS C SCREENING 09/14/2021 MAMMOGRAM 2021 INFLUENZA VACCINE 05/17/2025 08/06/2021, 07/24/2021 TDAP/TD VACCINES (3 - Td or Tdap) 04/06/2029 04/06/2019, 08/05/1997 Pneumococcal Vaccine 0-49 Aged Out No longer eligible based on patient's age to complete this topic Insurance Care Teams Concrete Block Layer Relationship Specialty Start Date End Date Laila Zeng MD [address] [place] [id number] PCP - General Family Medicine 09/02/21
--- NOTE | 2025-07-22 15:23 | MM_ITS ---
PROCEDURE INFORMATION: Exam: MG Bilateral Screening 3D Mammography Exam date and time: 07/22/2025 3:36 PM Age: 44 years old Clinical indication: Screening mammogram TECHNIQUE: Imaging protocol: Bilateral Screening tomosynthesis and 2D mammography including computer-aided detection (CAD) when performed. COMPARISON: 1. MG MM DIG SCREENING MAMM BI W/CAD 12/30/2023 2:10 PM 2. MG MM DIG SCREENING MAMM BI W/CAD 07/31/2021 4:36 PM 3. MG BC SCREENING MAMMOGRAM DIGITAL 08/05/2009 8:39 AM FINDINGS: MAMMOGRAPHY: Breast composition: The breasts are almost entirely fatty. Mass: None. Architectural distortion: No new or suspicious architectural distortion. Calcifications: No new or suspicious calcifications are present Asymmetric density: No new or suspicious asymmetric density is present Skin thickening: None. Axillary adenopathy: None. IMPRESSION: No mammographic evidence of malignancy. Recommend annual screening mammography unless otherwise clinically indicated. ASSESSMENT: BI-RADS category 1: Negative.
== END 2025-07-22 23:59 | disposition home or self-care (01) ==
LOC: RAD 15:20
PROVIDERS: PCP Family Medicine; Visit Provider Family Medicine
DX: Z12.31 Encounter for screening mammogram for malignant neoplasm of breast (principal)
CPT/HCPCS: 77063; 77067